=== PATIENT | male | born 1970 | race Caucasian/White ===

== ENCOUNTER 2019-07-29 01:40 | Inpatient (IN) ==
[2019-07-29] MEDS ORDERED: LACTATED RINGERS 1,000 ML IV STA (03:11)
[2019-07-29] MEDS ORDERED: DIPHTHERIA/TETANUS ADULT VACCINE 0.5 ML SYRINGE IM ONE (03:11)
[2019-07-29 04:37] LABS: Basophils # 0.1 10*3/uL (0.0-0.2); Basophils % 0.3 % (0.0-0.8); Eosinophils # 0.1 10*3/uL (0.0-0.87); Eosinophils % 0.7 % (0.00-10.9); Hemoglobin 19.6 GM/DL (14.0-18.0); Immature Granulocytes Absolute 0.18 #; Lymphocytes # 1.5 10*3/uL (1.4-4.0); Lymphocytes % 8.2 % (21.2-54.2); Mean Corpuscular HGB Conc 33.8 GM/DL (32-36); Mean Corpuscular Volume 101.8 FL (87-102); Mean Platelet Volume 10.5 FL (9.6-12.0); Monocytes % 6.4 % (1.7-12.7); Neutrophils % 83.4 % (38.7-73.9); Platelet Count 157 T/CUMM (130-400); Red Cell Distribution Width 14.1 % (9.3-17.3); White Blood Count 18.3 T/CUMM (4-12)
[2019-07-29] MEDS ORDERED: MIDAZOLAM 2 MG/2 ML VIAL ONE ×2 (04:47→16:25)
[2019-07-29] MEDS ORDERED: MORPHINE 10 MG/1 ML VIAL ONE (04:47)
[2019-07-29] MEDS ORDERED: MIDAZOLAM 2 MG/2 ML VIAL IV STA (04:50)
[2019-07-29] MEDS ORDERED: MORPHINE 4 MG/1 ML VIAL IV STA (04:50)
[2019-07-29 04:52] LABS: Partial Thromboplastin Time 24.2 SECS (20.8-36.0)
[2019-07-29 05:00] LABS: Alanine Aminotransferase 135 U/L (16-61); Alkaline Phosphatase 49 U/L (45-117); Aspartate Amino Transferase 155 U/L (0-37); Blood Urea Nitrogen 9 MG/DL (7-18); Calcium 8.9 MG/DL (8.5-10.1); Estimated Glom Filtration Rate 72 ML/MIN; Glucose 104 MG/DL (74-106); Osmolality,Calculated 264.4 MOS/KG (273-304); Total Protein 7.8 G/DL (6.4-8.3)
[2019-07-29 05:26] LABS: Apearance,Urine CLEAR (Clear); Bilirubin,Urine Negative (Negative); Blood, Urine Moderate mg/dL (Negative); Glucose,Urine (UA) Negative (Negative); Ketones,Urine Negative (Negative); Mucus,Urine Occasional /LPF (Occasional); Nitrite,Urine Negative (Negative); Protein,Urine Negative; RBC,Urine 1 /HPF (0-4); Urine Color Yellow (Yellow); Urine Specific Gravity 1.005 (1.001-1.035); Urine Urobilinogen < 2.0 EU/DL (0.2-1.0); WBC,Urine <1 /HPF (0-6)
[2019-07-29] MEDS ORDERED: PIPERACILLIN/TAZOBACTAM 3,375 MG in SODIUM CHLORIDE 0.9% 100 ML IV STA (05:31)
[2019-07-29 05:48] LABS: Barbiturates Screen,Urine Negative (Negative); Benzodiazepines Screen,Urine Negative (Negative); Cannabinoid Screen,Urine Negative (Negative); Opiate Screen,Urine Positive (Negative); Phencyclidine Screen,Urine Negative (Negative)
[2019-07-29] MEDS: DEXTROSE 5% NACL 0.45% 1,000 ML IV SCH ×2 (06:47→18:19)
[2019-07-29] MEDS: HYDROmorphone 2 MG/1 ML VIAL IV PRN ×3 (07:31→17:55)
[2019-07-29] MEDS ORDERED: ceFAZolin 2,000 MG in PREMIX 1 EACH IV ONE (07:42)
[2019-07-29] MEDS ORDERED: ONDANSETRON 4 MG/2 ML VIAL IV PRN (07:55)
[2019-07-29] MEDS ORDERED: MEPERIDINE 25 MG/1 ML VIAL IV PRN (07:55)
[2019-07-29] MEDS ORDERED: diphenhydrAMINE 50 MG/1 ML VIAL IV PRN (07:55)
[2019-07-29] MEDS ORDERED: PROMETHAZINE INJ 25 MG in SODIUM CHLORIDE 0.9% 50 ML IV PRN (07:55)
[2019-07-29] MEDS ORDERED: THIAMINE INJ 100 MG, FOLIC ACID INJ 1 MG, MAGNESIUM SULF INJ 2 GM, MULTIVITAMIN INJ 10 ... IV ONE (08:00)
[2019-07-29] MEDS: METOPROLOL TARTRATE 5 MG/5 ML VIAL IV SCH ×3 (10:18→10:36)
[2019-07-29] MEDS: PANTOPRAZOLE 40 MG VIAL IV SCH (10:20)
[2019-07-29] MEDS: dilTIAZem Drip 125 MG/125 ML PREMIX IV SCH ×2 (11:29→21:49)
[2019-07-29] MEDS: ONDANSETRON 4 MG/2 ML VIAL IV PRN (11:29)
[2019-07-29] MEDS ORDERED: METOPROLOL TARTRATE 5 MG/5 ML VIAL IV ONE (12:16)
[2019-07-29] MEDS ORDERED: MAGNESIUM HYDROXIDE SUSP 30 ML UDCUP PO PRN (13:31)
[2019-07-29] MEDS ORDERED: BACITRACIN OINT 0.9 GM PACK TOP ONE (14:41)
[2019-07-29] MEDS ORDERED: ROPIVACAINE 0.5% 30 ML VIAL ONE (15:33)
[2019-07-29] MEDS ORDERED: DEXAMETHASONE 4 MG/1 ML VIAL ONE ×2 (15:34→16:25)
[2019-07-29] MEDS ORDERED: propofoL 200 MG/20 ML VIAL IV ONE (16:24)
[2019-07-29] MEDS ORDERED: LIDOCAINE 2% 5 ML VIAL ONE (16:25)
[2019-07-29] MEDS ORDERED: PHENYLEPHRINE DRIP 20 MG/250 ML PREMIX IV ONE (16:25)
[2019-07-29] MEDS ORDERED: ONDANSETRON 4 MG/2 ML VIAL ONE (16:25)
[2019-07-29] MEDS ORDERED: fentaNYL 100 MCG/2 ML VIAL ONE (16:25)
[2019-07-29] MEDS ORDERED: SEVOFLURANE 1 UNIT/15 MINUTE INH ONE (16:25)
[2019-07-29] MEDS ORDERED: GLYCOPYRROLATE 0.4 MG/2 ML VIAL ONE (16:26)
[2019-07-29] MEDS ORDERED: ROCURONIUM 100 MG/10 ML VIAL IV ONE (16:26)
[2019-07-29] MEDS ORDERED: SUCCINYLCHOLINE 200 MG/10 ML VIAL ONE (16:26)
[2019-07-29] MEDS ORDERED: NEOSTIGMINE 10 MG/10 ML VIAL ONE (16:26)
[2019-07-29] MEDS ORDERED: PHENYLEPHRINE 1 MG/10 ML SYRINGE IV ONE (16:26)
[2019-07-29] MEDS ORDERED: LACTATED RINGERS 1,000 ML IV ONE (16:26)
[2019-07-29] MEDS: POTASSIUM CHLORIDE INJ 20 MEQ in LACTATED RINGERS 1,000 ML IV SCH ×2 (18:09→22:15)
[2019-07-29] MEDS: ceFAZolin 2,000 MG in PREMIX 1 EACH IV SCH (18:09)
[2019-07-29] MEDS: DOCUSATE SODIUM 100 MG CAPSULE PO SCH (20:30)
[2019-07-29] MEDS ORDERED: FUROSEMIDE 20 MG/2 ML VIAL IV ONE (21:37)
[2019-07-29] MEDS ORDERED: ALBUTEROL/IPRATROPIUM 3 ML NEB RESP TX ONE (21:45)
[2019-07-29] MEDS: ALBUTEROL/IPRATROPIUM 3 ML NEB RESP TX SCH (22:00)
[2019-07-29] MEDS: ZALEPLON 5 MG CAPSULE PO PRN (22:16)
[2019-07-30] MEDS: POTASSIUM CHLORIDE INJ 20 MEQ in LACTATED RINGERS 1,000 ML IV SCH ×2 (02:10→06:15)
[2019-07-30] MEDS: ceFAZolin 2,000 MG in PREMIX 1 EACH IV SCH (02:23)
[2019-07-30] MEDS: HYDROmorphone 2 MG/1 ML VIAL IV PRN ×5 (02:24→19:49)
[2019-07-30] MEDS: ALBUTEROL/IPRATROPIUM 3 ML NEB RESP TX SCH ×6 (02:41→23:30)
[2019-07-30 04:10] LABS: Basophils % 0.2 % (0.0-0.8); Hematocrit 54.2 VOL% (42.0-52.0); Hemoglobin 18.2 GM/DL (14.0-18.0); Immature Granulocytes % 0.8 %; Lymphocytes # 0.5 10*3/uL (1.4-4.0); Mean Corpuscular HGB Conc 33.6 GM/DL (32-36); Mean Corpuscular Volume 102.3 FL (87-102); Mean Platelet Volume 11.1 FL (9.6-12.0); Monocytes % 9.8 % (1.7-12.7); Neutrophils % 85.2 % (38.7-73.9); Platelet Count 145 T/CUMM (130-400); White Blood Count 13.2 T/CUMM (4-12)
[2019-07-30 04:31] LABS: Band Neutrophils 7 % (0-10); Lymphocytes 7 % (20-55); Macrocytosis Slight; Segmented Neutrophils 79 % (50-85); Total Cells Counted 100
[2019-07-30 04:32] LABS: Platelet Estimate Adequate
[2019-07-30 04:36] LABS: Calcium 7.3 MG/DL (8.5-10.1); Osmolality,Calculated 264.8 MOS/KG (273-304)
[2019-07-30] MEDS: PANTOPRAZOLE 40 MG VIAL IV SCH (08:54)
[2019-07-30] MEDS: METOPROLOL TARTRATE 25 MG TABLET PO SCH ×2 (08:56→22:06)
[2019-07-30] MEDS: DOCUSATE SODIUM 100 MG CAPSULE PO SCH ×2 (08:56→22:49)
[2019-07-30] MEDS: DILTIAZEM CD 120 MG CAPSULE PO SCH (08:57)
[2019-07-30] MEDS ORDERED: SODIUM CHLORIDE 0.9% 1,000 ML IV SCH (09:00)
[2019-07-30] MEDS ORDERED: DILTIAZEM CD 120 MG CAPSULE PO SCH (09:00)
[2019-07-30] MEDS: NICOTINE 7 MG/24 HR PATCH TRANSDERM SCH (09:02)
[2019-07-30] MEDS: FOLIC ACID 1 MG TABLET PO SCH (09:13)
[2019-07-30] MEDS: APIXABAN 2.5 MG TABLET PO SCH ×2 (09:13→22:06)
[2019-07-30 09:39] LABS: Apearance,Urine CLOUDY (Clear); Bilirubin,Urine Negative (Negative); Blood, Urine Large mg/dL (Negative); Glucose,Urine (UA) Negative (Negative); Ketones,Urine 5 mg/dL (Negative); Mucus,Urine Occasional /LPF (Occasional); Nitrite,Urine Negative (Negative); Protein,Urine 30 MG/DL; RBC,Urine 144 /HPF (0-4); Urine Color Yellow (Yellow); Urine Specific Gravity 1.017 (1.001-1.035); Urine Urobilinogen < 2.0 EU/DL (0.2-1.0); WBC,Urine 274 /HPF (0-6)
[2019-07-30] MEDS ORDERED: ALUMINUM/MAGNES/SIMETH MAX STR 30 ML UDCUP PO PRN (14:57)
[2019-07-30] MEDS ORDERED: MIDAZOLAM 2 MG/2 ML VIAL IV ONE (21:07)
[2019-07-30] MEDS ORDERED: LEVALBUTEROL 1.25 MG/3 ML NEB RESP TX ONE ×2 (21:10→21:11)
[2019-07-30] MEDS ORDERED: MIDAZOLAM 10 MG/2 ML VIAL ONE (21:13)
[2019-07-30] MEDS ORDERED: LORazepam 2 MG/1 ML VIAL IV ONE (21:15)
[2019-07-30] MEDS ORDERED: LORazepam 2 MG/1 ML VIAL ONE (21:17)
[2019-07-30 21:42] LABS: Calcium 7.9 MG/DL (8.5-10.1); Osmolality,Calculated 261.4 MOS/KG (273-304)
[2019-07-30 21:45] LABS: ABG Base Excess -4.7 MMOL/L (-2.5-2.5); ABG HCO3 20.6 MMOL/L (20-26); ABG Oxygen Saturation 96.7 % (95-100); ABG PCO2 32.3 MM HG (35-48); ABG PH 7.381 (7.35-7.45); ABG PO2 89.5 MM HG (80-95); ABG TCO2 15.8 MMOL/L (23-27); Allen Test Positive; Pt O2 Delivery Device Venturi Mask
[2019-07-30] MEDS: ZALEPLON 5 MG CAPSULE PO PRN (22:08)
[2019-07-31] MEDS: HYDROmorphone 2 MG/1 ML VIAL IV PRN ×3 (00:04→08:37)
[2019-07-31] MEDS: LORazepam 1 MG TABLET PO PRN ×2 (01:12→09:09)
[2019-07-31] MEDS: ALBUTEROL/IPRATROPIUM 3 ML NEB RESP TX SCH ×5 (03:15→19:58)
[2019-07-31 06:31] LABS: Basophils % 0.1 % (0.0-0.8); Hematocrit 51.7 VOL% (42.0-52.0); Immature Granulocytes % 1.2 %; Immature Granulocytes Absolute 0.26 #; Lymphocytes # 0.9 10*3/uL (1.4-4.0); Lymphocytes % 4.2 % (21.2-54.2); Mean Corpuscular HGB Conc 32.9 GM/DL (32-36); Mean Platelet Volume 11.4 FL (9.6-12.0); Neutrophils % 86.5 % (38.7-73.9); Platelet Count 136 T/CUMM (130-400); Red Blood Count 5.02 MC/CUMM (3.8-5.5); Red Cell Distribution Width 13.8 % (9.3-17.3)
[2019-07-31 06:40] LABS: Calcium 8.1 MG/DL (8.5-10.1); Osmolality,Calculated 249.9 MOS/KG (273-304)
[2019-07-31 06:50] LABS: Band Neutrophils 1 % (0-10); Lymphocytes 3 % (20-55); Segmented Neutrophils 91 % (50-85); Total Cells Counted 100
[2019-07-31 08:32] LABS: Hepatitis B Core IgM Quant 0.13 Index; Hepatitis B Surface Ag Quant < 0.10 Index; Hepatitis B Surface Ag Result Negative (Negative); Hepatitis C Virus Ab Quant < 0.02 Index; Hepatitis C Virus Ab Result Negative (Negative)
[2019-07-31] MEDS: DOCUSATE SODIUM 100 MG CAPSULE PO SCH (08:34)
[2019-07-31] MEDS: DILTIAZEM CD 120 MG CAPSULE PO SCH (08:34)
[2019-07-31] MEDS: METOPROLOL TARTRATE 25 MG TABLET PO SCH ×2 (08:34→21:59)
[2019-07-31] MEDS: APIXABAN 2.5 MG TABLET PO SCH ×2 (08:34→21:59)
[2019-07-31] MEDS: FOLIC ACID 1 MG TABLET PO SCH (08:34)
[2019-07-31] MEDS: NICOTINE 7 MG/24 HR PATCH TRANSDERM SCH (08:44)
[2019-07-31] MEDS ORDERED: PANTOPRAZOLE 40 MG TABLET PO SCH (09:00)
[2019-07-31] MEDS ORDERED: SODIUM CHLORIDE 0.9% 1,000 ML IV SCH (09:30)
[2019-07-31] MEDS ORDERED: CIPROFLOXACIN 500 MG TABLET PO SCH (09:37)
[2019-07-31] MEDS: TAMSULOSIN 0.4 MG CAPSULE PO SCH ×2 (09:51→21:59)
[2019-07-31] MEDS ORDERED: ALBUTEROL/IPRATROPIUM 3 ML NEB RESP TX PRN (09:55)
[2019-07-31] MEDS ORDERED: methylPREDNISolone SOD SUC 125 MG/2 ML VIAL IV ONE (10:30)
[2019-07-31] MEDS ORDERED: FUROSEMIDE 40 MG/4 ML VIAL IV ONE ×2 (10:30→15:00)
[2019-07-31] MEDS ORDERED: ZIPRASIDONE 20 MG/1 ML VIAL IM PRN (13:09)
[2019-07-31] MEDS ORDERED: LORazepam 2 MG/1 ML VIAL IV PRN ×3 (13:09→13:54)
[2019-07-31] MEDS ORDERED: ETOMIDATE 40 MG/20 ML VIAL IV ONE (13:52)
[2019-07-31] MEDS ORDERED: SUCCINYLCHOLINE 200 MG/10 ML VIAL ONE (13:52)
[2019-07-31] MEDS ORDERED: propofoL 200 MG/20 ML VIAL IV ONE (13:52)
[2019-07-31 14:15] LABS: Basophils % 0.2 % (0.0-0.8); Hematocrit 48.9 VOL% (42.0-52.0); Hemoglobin 16.4 GM/DL (14.0-18.0); Immature Granulocytes % 1.6 %; Immature Granulocytes Absolute 0.33 #; Lymphocytes # 0.6 10*3/uL (1.4-4.0); Mean Corpuscular HGB Conc 33.5 GM/DL (32-36); Mean Corpuscular Volume 101.7 FL (87-102); Mean Platelet Volume 10.8 FL (9.6-12.0); Monocytes % 5.9 % (1.7-12.7); Neutrophils % 89.3 % (38.7-73.9); Platelet Count 144 T/CUMM (130-400); Red Blood Count 4.81 MC/CUMM (3.8-5.5); Red Cell Distribution Width 13.6 % (9.3-17.3); White Blood Count 20.8 T/CUMM (4-12)
[2019-07-31 14:37] LABS: ABG Base Excess -3.7 MMOL/L (-2.5-2.5); ABG HCO3 21.2 MMOL/L (20-26); ABG Oxygen Saturation 88.4 % (95-100); ABG PCO2 51.4 MM HG (35-48); ABG PO2 63.5 MM HG (80-95); ABG TCO2 20.7 MMOL/L (23-27); Allen Test Positive; Pt O2 Delivery Device Ventilator
[2019-07-31] MEDS ORDERED: MAGNESIUM SULF RIDER 4 GM in PREMIX 1 EACH IV PRN (14:40)
[2019-07-31] MEDS ORDERED: MAGNESIUM SULF RIDER 2 GM in PREMIX 1 EACH IV PRN (14:40)
[2019-07-31 14:42] LABS: Band Neutrophils 6 % (0-10); Lymphocytes 4 % (20-55); Metamyelocytes 1 %; Segmented Neutrophils 88 % (50-85); Total Cells Counted 100
[2019-07-31 14:43] LABS: Anisocytosis Slight; Macrocytosis Slight; Platelet Estimate Adequate; Polychromasia Slight
[2019-07-31 14:48] LABS: Albumin 3.4 G/DL (3.4-5.0); Bilirubin,Total 1.9 MG/DL (0.2-1.0); Calcium 7.4 MG/DL (8.5-10.1); Osmolality,Calculated 251.2 MOS/KG (273-304)
[2019-07-31 14:51] LABS: INR 1.1; PT Patient Result 12.2 SECS (9.6-12.2)
[2019-07-31] MEDS: fentaNYL INJ 1,250 MCG in SODIUM CHLORIDE 0.9% 225 ML IV PRN (14:55)
[2019-07-31] MEDS ORDERED: THIAMINE 100 MG TABLET PER TUBE SCH (15:00)
[2019-07-31] MEDS ORDERED: SODIUM POLYSTYRENE SULFATE 15 GM/60 ML BOTTLE PO ONE (17:52)
[2019-07-31] MEDS: LORazepam 2 MG/1 ML VIAL IV PRN ×2 (17:52→17:58)
[2019-07-31] MEDS ORDERED: GLUCAGON 1 MG VIAL IM PRN (17:52)
[2019-07-31] MEDS ORDERED: DEXTROSE 10% 250 ML BAG IV PRN (17:52)
[2019-07-31] MEDS ORDERED: MAGNESIUM SULF RIDER 2 GM in PREMIX 1 EACH IV ONE (17:58)
[2019-07-31] MEDS: CISATRACURIUM 200 MG in SODIUM CHLORIDE 0.9% 180 ML IV SCH (18:02)
[2019-07-31] MEDS: PIPERACILLIN/TAZOBACTAM 3,375 MG in SODIUM CHLORIDE 0.9% 100 ML IV SCH (18:10)
[2019-07-31] MEDS: methylPREDNISolone SOD SUC 40 MG/1 ML VIAL IV SCH (18:10)
[2019-07-31] MEDS: OXAZEPAM 10 MG CAPSULE PO SCH ×2 (18:19→22:35)
[2019-07-31] MEDS: INSULIN REGULAR 100 UNIT/ML SUBCUT SCH (18:23)
[2019-07-31] MEDS: FUROSEMIDE INJ 100 MG in SODIUM CHLORIDE 0.9% 90 ML IV SCH (18:34)
[2019-07-31 19:49] LABS: Hepatitis B Core IgM Quant 0.13 Index; Hepatitis B Surface Ag Quant < 0.10 Index; Hepatitis B Surface Ag Result Negative (Negative); Hepatitis C Virus Ab Quant < 0.02 Index; Hepatitis C Virus Ab Result Negative (Negative)
[2019-07-31 20:35] LABS: ABG Base Excess -3.7 MMOL/L (-2.5-2.5); ABG HCO3 21.4 MMOL/L (20-26); ABG Oxygen Saturation 98.4 % (95-100); ABG PCO2 59.2 MM HG (35-48); ABG PH 7.242 (7.35-7.45); Allen Test Positive; Pt O2 Delivery Device Ventilator
[2019-07-31] MEDS ORDERED: LORATADINE 10 MG TABLET PO SCH (21:00)
[2019-07-31] MEDS: DOCUSATE SODIUM 100 MG/10 ML UDCUP PER TUBE SCH (22:00)
[2019-07-31] MEDS: OXYMETAZOLINE 0.05% NASAL SPRAY 15 ML BOTTLE BOTH NARES SCH (22:00)
[2019-07-31] MEDS: MOMETASONE/FORMOTEROL 200-5 INHALER 8.8 GM INH SCH (22:00)
[2019-08-01] MEDS: ALBUTEROL/IPRATROPIUM 3 ML NEB RESP TX SCH ×7 (00:05→23:56)
[2019-08-01] MEDS: fentaNYL INJ 1,250 MCG in SODIUM CHLORIDE 0.9% 225 ML IV PRN ×3 (00:30→18:16)
[2019-08-01] MEDS: INSULIN REGULAR 100 UNIT/ML SUBCUT SCH ×5 (01:42→23:45)
[2019-08-01] MEDS: PIPERACILLIN/TAZOBACTAM 3,375 MG in SODIUM CHLORIDE 0.9% 100 ML IV SCH ×3 (02:05→18:14)
[2019-08-01] MEDS: methylPREDNISolone SOD SUC 40 MG/1 ML VIAL IV SCH ×3 (02:05→18:14)
[2019-08-01] MEDS: CISATRACURIUM 200 MG in SODIUM CHLORIDE 0.9% 180 ML IV SCH ×4 (03:30→21:58)
[2019-08-01] MEDS: FUROSEMIDE INJ 100 MG in SODIUM CHLORIDE 0.9% 90 ML IV SCH ×2 (03:30→14:06)
[2019-08-01 04:17] LABS: Basophils % 0.2 % (0.0-0.8); Hematocrit 43.4 VOL% (42.0-52.0); Hemoglobin 14.3 GM/DL (14.0-18.0); Immature Granulocytes % 1.3 %; Immature Granulocytes Absolute 0.16 #; Lymphocytes # 0.5 10*3/uL (1.4-4.0); Lymphocytes % 4.3 % (21.2-54.2); Mean Corpuscular HGB Conc 32.9 GM/DL (32-36); Mean Corpuscular Volume 101.9 FL (87-102); Mean Platelet Volume 11.1 FL (9.6-12.0); Monocytes % 6.5 % (1.7-12.7); Neutrophils % 87.7 % (38.7-73.9); Platelet Count 113 T/CUMM (130-400); Red Blood Count 4.26 MC/CUMM (3.8-5.5); Red Cell Distribution Width 13.2 % (9.3-17.3); White Blood Count 12.3 T/CUMM (4-12)
[2019-08-01 04:23] LABS: PT Patient Result 11.1 SECS (9.6-12.2)
[2019-08-01 04:28] LABS: Calcium 7.6 MG/DL (8.5-10.1); Osmolality,Calculated 259.8 MOS/KG (273-304)
[2019-08-01 04:32] LABS: Albumin 3.1 G/DL (3.4-5.0); Bilirubin,Direct 0.74 MG/DL (0.0-0.20); Bilirubin,Indirect 1.1 MG/DL (0.0-1.0); Bilirubin,Total 1.8 MG/DL (0.2-1.0); Total Protein 5.7 G/DL (6.4-8.3)
[2019-08-01 04:41] LABS: Band Neutrophils 2 % (0-10); Hypochromasia Slight; Lymphocytes 7 % (20-55); Platelet Estimate Decreased; Segmented Neutrophils 83 % (50-85); Total Cells Counted 100
[2019-08-01 04:42] LABS: Macrocytosis Slight
[2019-08-01 04:43] LABS: Allen Test Positive; Pt O2 Delivery Device Ventilator
[2019-08-01 04:45] LABS: ABG Base Excess -1.4 MMOL/L (-2.5-2.5); ABG HCO3 24.9 MMOL/L (20-26); ABG Oxygen Saturation 98.6 % (95-100); ABG PCO2 47.5 MM HG (35-48); ABG PH 7.337 (7.35-7.45); ABG PO2 138.1 MM HG (80-95); ABG TCO2 26.3 MMOL/L (23-27)
[2019-08-01] MEDS: MOMETASONE/FORMOTEROL 200-5 INHALER 8.8 GM INH SCH ×2 (08:17→21:58)
[2019-08-01] MEDS: MULTIVITAMIN (CENTRUM) TABLET PO SCH (08:52)
[2019-08-01] MEDS: DILTIAZEM 60 MG TABLET PO SCH ×4 (08:53→21:28)
[2019-08-01] MEDS: TAMSULOSIN 0.4 MG CAPSULE PO SCH ×2 (08:53→21:29)
[2019-08-01] MEDS: buPROPion 75 MG TABLET PER TUBE SCH ×2 (08:53→21:27)
[2019-08-01] MEDS: METOPROLOL TARTRATE 25 MG TABLET PO SCH ×2 (08:53→21:27)
[2019-08-01] MEDS: MONTELUKAST 10 MG TABLET PO SCH (08:54)
[2019-08-01] MEDS: ATORVASTATIN 20 MG TABLET PO SCH (08:54)
[2019-08-01] MEDS: APIXABAN 2.5 MG TABLET PO SCH ×2 (08:54→21:30)
[2019-08-01] MEDS: DOCUSATE SODIUM 100 MG/10 ML UDCUP PER TUBE SCH ×2 (08:54→21:27)
[2019-08-01] MEDS: PANTOPRAZOLE 40 MG VIAL IV SCH (08:59)
[2019-08-01] MEDS ORDERED: COLCHICINE 0.6 MG CAPSULE PO SCH (09:00)
[2019-08-01] MEDS ORDERED: LURASIDONE 60 MG TABLET PO SCH (09:00)
[2019-08-01] MEDS ORDERED: hydrOXYzine HCL 25 MG TABLET PO SCH (09:00)
[2019-08-01] MEDS: THIAMINE 200 MG/2 ML VIAL IV SCH (09:02)
[2019-08-01] MEDS: OXAZEPAM 10 MG CAPSULE PO SCH ×4 (09:13→21:44)
[2019-08-01] MEDS: FOLIC ACID INJ 1 MG in SYRINGE 1 EACH IV SCH (09:24)
[2019-08-01] MEDS: NICOTINE 7 MG/24 HR PATCH TRANSDERM SCH (10:16)
[2019-08-01] MEDS: FLUoxetine 20 MG CAPSULE PO SCH (12:26)
[2019-08-01] MEDS: LACTULOSE 20 GM/30 ML UDCUP PO SCH ×3 (12:34→21:27)
[2019-08-01] MEDS: OXYMETAZOLINE 0.05% NASAL SPRAY 15 ML BOTTLE BOTH NARES SCH (21:58)
[2019-08-02] MEDS: FUROSEMIDE INJ 100 MG in SODIUM CHLORIDE 0.9% 90 ML IV SCH (00:18)
[2019-08-02] MEDS: PIPERACILLIN/TAZOBACTAM 3,375 MG in SODIUM CHLORIDE 0.9% 100 ML IV SCH ×3 (01:49→18:21)
[2019-08-02] MEDS: methylPREDNISolone SOD SUC 40 MG/1 ML VIAL IV SCH ×3 (01:50→18:20)
[2019-08-02] MEDS: fentaNYL INJ 1,250 MCG in SODIUM CHLORIDE 0.9% 225 ML IV PRN ×3 (03:27→16:56)
[2019-08-02] MEDS: ALBUTEROL/IPRATROPIUM 3 ML NEB RESP TX SCH ×6 (03:34→23:40)
[2019-08-02 03:42] LABS: Allen Test Positive; Pt O2 Delivery Device Ventilator
[2019-08-02 03:43] LABS: ABG Base Excess 6.4 MMOL/L (-2.5-2.5); ABG HCO3 31.7 MMOL/L (20-26); ABG Oxygen Saturation 95.3 % (95-100); ABG PCO2 47.4 MM HG (35-48); ABG PH 7.443 (7.35-7.45); ABG PO2 76.2 MM HG (80-95); ABG TCO2 33.1 MMOL/L (23-27)
[2019-08-02 05:05] LABS: Basophils % 0.1 % (0.0-0.8); Hematocrit 42.8 VOL% (42.0-52.0); Hemoglobin 14.2 GM/DL (14.0-18.0); Immature Granulocytes Absolute 0.14 #; Lymphocytes # 0.3 10*3/uL (1.4-4.0); Mean Corpuscular HGB Conc 33.2 GM/DL (32-36); Mean Corpuscular Volume 102.1 FL (87-102); Mean Platelet Volume 10.5 FL (9.6-12.0); Monocytes % 7.1 % (1.7-12.7); Neutrophils % 89.8 % (38.7-73.9); Platelet Count 150 T/CUMM (130-400); Red Blood Count 4.19 MC/CUMM (3.8-5.5); Red Cell Distribution Width 13.4 % (9.3-17.3); White Blood Count 13.8 T/CUMM (4-12)
[2019-08-02 05:31] LABS: Band Neutrophils 2 % (0-10); Hypochromasia 1+; Lymphocytes 5 % (20-55); Macrocytosis Slight; Segmented Neutrophils 86 % (50-85); Total Cells Counted 100
[2019-08-02 05:39] LABS: Albumin 2.7 G/DL (3.4-5.0); Bilirubin,Direct 0.48 MG/DL (0.0-0.20); Bilirubin,Indirect 0.4 MG/DL (0.0-1.0); Bilirubin,Total 0.9 MG/DL (0.2-1.0); Total Protein 5.6 G/DL (6.4-8.3)
[2019-08-02 05:41] LABS: Prealbumin 20.2 MG/DL (20-40)
[2019-08-02 05:56] LABS: Calcium 8.1 MG/DL (8.5-10.1); Osmolality,Calculated 280.1 MOS/KG (273-304)
[2019-08-02] MEDS: INSULIN REGULAR 100 UNIT/ML SUBCUT SCH ×3 (06:18→18:21)
[2019-08-02] MEDS: PANTOPRAZOLE 40 MG VIAL IV SCH (09:15)
[2019-08-02] MEDS: SOTALOL 80 MG TABLET PO SCH ×2 (09:37→21:04)
[2019-08-02] MEDS: MONTELUKAST 10 MG TABLET PO SCH (09:37)
[2019-08-02] MEDS: APIXABAN 2.5 MG TABLET PO SCH ×2 (09:37→21:05)
[2019-08-02] MEDS: DOCUSATE SODIUM 100 MG/10 ML UDCUP PER TUBE SCH ×2 (09:37→21:04)
[2019-08-02] MEDS: ATORVASTATIN 20 MG TABLET PO SCH (09:37)
[2019-08-02] MEDS: TAMSULOSIN 0.4 MG CAPSULE PO SCH ×2 (09:37→21:05)
[2019-08-02] MEDS: MULTIVITAMIN (CENTRUM) TABLET PO SCH (09:37)
[2019-08-02] MEDS: DILTIAZEM 60 MG TABLET PO SCH ×4 (09:37→21:05)
[2019-08-02] MEDS: buPROPion 75 MG TABLET PER TUBE SCH ×2 (09:37→21:05)
[2019-08-02] MEDS: MOMETASONE/FORMOTEROL 200-5 INHALER 8.8 GM INH SCH ×2 (09:38→21:26)
[2019-08-02] MEDS: FUROSEMIDE 40 MG/4 ML VIAL IV SCH ×2 (09:38→15:44)
[2019-08-02] MEDS: LACTULOSE 20 GM/30 ML UDCUP PO SCH ×3 (09:39→21:04)
[2019-08-02] MEDS: THIAMINE 200 MG/2 ML VIAL IV SCH (09:42)
[2019-08-02] MEDS: OXAZEPAM 10 MG CAPSULE PO SCH ×4 (09:54→21:05)
[2019-08-02] MEDS: NICOTINE 7 MG/24 HR PATCH TRANSDERM SCH (09:54)
[2019-08-02] MEDS: FOLIC ACID INJ 1 MG in SYRINGE 1 EACH IV SCH (09:54)
[2019-08-02] MEDS: FLUoxetine 20 MG CAPSULE PO SCH (13:28)
[2019-08-02] MEDS: CISATRACURIUM 200 MG in SODIUM CHLORIDE 0.9% 180 ML IV SCH (17:32)
[2019-08-02] MEDS: OXYMETAZOLINE 0.05% NASAL SPRAY 15 ML BOTTLE BOTH NARES SCH (21:26)
[2019-08-03] MEDS: INSULIN REGULAR 100 UNIT/ML SUBCUT SCH ×4 (00:19→17:27)
[2019-08-03] MEDS: PIPERACILLIN/TAZOBACTAM 3,375 MG in SODIUM CHLORIDE 0.9% 100 ML IV SCH ×3 (01:39→17:31)
[2019-08-03] MEDS: methylPREDNISolone SOD SUC 40 MG/1 ML VIAL IV SCH ×3 (01:40→21:38)
[2019-08-03] MEDS: ALBUTEROL/IPRATROPIUM 3 ML NEB RESP TX SCH ×6 (02:58→23:45)
[2019-08-03 03:39] LABS: ABG Base Excess 8.1 MMOL/L (-2.5-2.5); ABG HCO3 31.8 MMOL/L (20-26); ABG Oxygen Saturation 95.8 % (95-100); ABG PCO2 48.6 MM HG (35-48); ABG TCO2 28.4 MMOL/L (23-27)
[2019-08-03] MEDS: fentaNYL INJ 1,250 MCG in SODIUM CHLORIDE 0.9% 225 ML IV PRN ×4 (03:52→21:36)
[2019-08-03 06:19] LABS: Basophils % 0.2 % (0.0-0.8); Hematocrit 45.7 VOL% (42.0-52.0); Hemoglobin 14.9 GM/DL (14.0-18.0); Immature Granulocytes % 1.3 %; Lymphocytes # 0.5 10*3/uL (1.4-4.0); Mean Corpuscular HGB Conc 32.6 GM/DL (32-36); Mean Corpuscular Volume 104.8 FL (87-102); Mean Platelet Volume 10.1 FL (9.6-12.0); Monocytes % 6.5 % (1.7-12.7); NRBC # 0.04 10*3/uL; Platelet Count 180 T/CUMM (130-400); Red Blood Count 4.36 MC/CUMM (3.8-5.5)
[2019-08-03 06:41] LABS: Calcium 9.1 MG/DL (8.5-10.1); Osmolality,Calculated 290.8 MOS/KG (273-304)
[2019-08-03 06:43] LABS: Albumin 2.6 G/DL (3.4-5.0); Bilirubin,Direct 0.4 MG/DL (0.0-0.20); Bilirubin,Indirect 0.6 MG/DL (0.0-1.0); Total Protein 6.4 G/DL (6.4-8.3)
[2019-08-03] MEDS: DOCUSATE SODIUM 100 MG/10 ML UDCUP PER TUBE SCH ×2 (08:41→21:38)
[2019-08-03] MEDS: THIAMINE 200 MG/2 ML VIAL IV SCH (08:41)
[2019-08-03] MEDS: FUROSEMIDE 40 MG/4 ML VIAL IV SCH ×2 (08:41→15:26)
[2019-08-03] MEDS: LACTULOSE 20 GM/30 ML UDCUP PO SCH ×3 (08:41→21:36)
[2019-08-03] MEDS: PANTOPRAZOLE 40 MG VIAL IV SCH (08:41)
[2019-08-03] MEDS: SOTALOL 80 MG TABLET PO SCH ×2 (08:42→21:39)
[2019-08-03] MEDS: ATORVASTATIN 20 MG TABLET PO SCH (08:42)
[2019-08-03] MEDS: DILTIAZEM 60 MG TABLET PO SCH ×4 (08:42→21:40)
[2019-08-03] MEDS: APIXABAN 2.5 MG TABLET PO SCH ×2 (08:42→21:40)
[2019-08-03] MEDS: MULTIVITAMIN (CENTRUM) TABLET PO SCH (08:42)
[2019-08-03] MEDS: buPROPion 75 MG TABLET PER TUBE SCH ×2 (08:42→21:36)
[2019-08-03] MEDS: MONTELUKAST 10 MG TABLET PO SCH (08:42)
[2019-08-03] MEDS: TAMSULOSIN 0.4 MG CAPSULE PO SCH ×2 (08:42→21:40)
[2019-08-03] MEDS: MOMETASONE/FORMOTEROL 200-5 INHALER 8.8 GM INH SCH ×2 (08:44→22:06)
[2019-08-03] MEDS: FOLIC ACID INJ 1 MG in SYRINGE 1 EACH IV SCH (08:44)
[2019-08-03 08:55] LABS: Band Neutrophils 2 % (0-10); Lymphocytes 7 % (20-55); Segmented Neutrophils 86 % (50-85); Total Cells Counted 100
[2019-08-03 08:56] LABS: Hypochromasia 1+; Macrocytosis Slight
[2019-08-03 08:57] LABS: Platelet Estimate Adequate; Polychromasia Slight
[2019-08-03] MEDS: OXAZEPAM 10 MG CAPSULE PO SCH ×4 (08:59→21:39)
[2019-08-03] MEDS: NICOTINE 7 MG/24 HR PATCH TRANSDERM SCH (09:50)
[2019-08-03] MEDS: FLUoxetine 20 MG CAPSULE PO SCH (12:08)
[2019-08-03] MEDS: CISATRACURIUM 200 MG in SODIUM CHLORIDE 0.9% 180 ML IV SCH (17:09)
[2019-08-03] MEDS: OXYMETAZOLINE 0.05% NASAL SPRAY 15 ML BOTTLE BOTH NARES SCH (22:06)
[2019-08-04] MEDS: INSULIN REGULAR 100 UNIT/ML SUBCUT SCH ×4 (00:54→17:03)
[2019-08-04] MEDS: PIPERACILLIN/TAZOBACTAM 3,375 MG in SODIUM CHLORIDE 0.9% 100 ML IV SCH ×3 (02:38→17:05)
[2019-08-04] MEDS: ALBUTEROL/IPRATROPIUM 3 ML NEB RESP TX SCH ×5 (03:35→20:27)
[2019-08-04 04:21] LABS: ABG Base Excess 8.3 MMOL/L (-2.5-2.5); ABG Oxygen Saturation 96.7 % (95-100); ABG PCO2 44.5 MM HG (35-48); ABG PH 7.479 (7.35-7.45); ABG PO2 87.6 MM HG (80-95); ABG TCO2 27.7 MMOL/L (23-27); Allen Test Positive; Pt O2 Delivery Device Ventilator
[2019-08-04] MEDS: fentaNYL INJ 1,250 MCG in SODIUM CHLORIDE 0.9% 225 ML IV PRN ×2 (05:57→17:06)
[2019-08-04] MEDS: THIAMINE 200 MG/2 ML VIAL IV SCH (08:00)
[2019-08-04] MEDS: methylPREDNISolone SOD SUC 40 MG/1 ML VIAL IV SCH ×2 (08:00→21:42)
[2019-08-04] MEDS: FUROSEMIDE 40 MG/4 ML VIAL IV SCH ×2 (08:00→15:32)
[2019-08-04] MEDS: FOLIC ACID INJ 1 MG in SYRINGE 1 EACH IV SCH (08:01)
[2019-08-04] MEDS: PANTOPRAZOLE 40 MG VIAL IV SCH (08:01)
[2019-08-04] MEDS: ATORVASTATIN 20 MG TABLET PO SCH (08:02)
[2019-08-04] MEDS: NICOTINE 7 MG/24 HR PATCH TRANSDERM SCH (08:02)
[2019-08-04] MEDS: SOTALOL 80 MG TABLET PO SCH ×2 (08:02→21:41)
[2019-08-04] MEDS: MONTELUKAST 10 MG TABLET PO SCH (08:02)
[2019-08-04] MEDS: MULTIVITAMIN (CENTRUM) TABLET PO SCH (08:02)
[2019-08-04] MEDS: OXAZEPAM 10 MG CAPSULE PO SCH ×4 (08:02→21:51)
[2019-08-04] MEDS: buPROPion 75 MG TABLET PER TUBE SCH ×2 (08:02→21:42)
[2019-08-04] MEDS: APIXABAN 2.5 MG TABLET PO SCH ×2 (08:03→21:40)
[2019-08-04] MEDS: DOCUSATE SODIUM 100 MG/10 ML UDCUP PER TUBE SCH ×2 (08:03→21:40)
[2019-08-04] MEDS: TAMSULOSIN 0.4 MG CAPSULE PO SCH ×2 (08:03→21:41)
[2019-08-04] MEDS: LACTULOSE 20 GM/30 ML UDCUP PO SCH ×3 (08:03→21:40)
[2019-08-04] MEDS: DILTIAZEM 60 MG TABLET PO SCH ×4 (08:03→21:42)
[2019-08-04] MEDS: MOMETASONE/FORMOTEROL 200-5 INHALER 8.8 GM INH SCH ×2 (08:11→21:49)
[2019-08-04] MEDS: FLUoxetine 20 MG CAPSULE PO SCH (12:11)
[2019-08-04] MEDS: CISATRACURIUM 200 MG in SODIUM CHLORIDE 0.9% 180 ML IV SCH (17:03)
[2019-08-04] MEDS: OXYMETAZOLINE 0.05% NASAL SPRAY 15 ML BOTTLE BOTH NARES SCH (21:49)
[2019-08-05] MEDS: ALBUTEROL/IPRATROPIUM 3 ML NEB RESP TX SCH ×6 (00:04→20:18)
[2019-08-05] MEDS: INSULIN REGULAR 100 UNIT/ML SUBCUT SCH ×4 (00:52→17:31)
[2019-08-05] MEDS: PIPERACILLIN/TAZOBACTAM 3,375 MG in SODIUM CHLORIDE 0.9% 100 ML IV SCH ×3 (03:00→17:04)
[2019-08-05 05:41] LABS: ABG Base Excess 8.8 MMOL/L (-2.5-2.5); ABG HCO3 33.5 MMOL/L (20-26); ABG PCO2 44.8 MM HG (35-48); ABG PH 7.491 (7.35-7.45); ABG PO2 92.2 MM HG (80-95); ABG TCO2 34.8 MMOL/L (23-27)
[2019-08-05] MEDS: buPROPion 75 MG TABLET PER TUBE SCH ×3 (08:30→21:37)
[2019-08-05] MEDS: PANTOPRAZOLE 40 MG VIAL IV SCH (09:02)
[2019-08-05] MEDS: FOLIC ACID INJ 1 MG in SYRINGE 1 EACH IV SCH (09:03)
[2019-08-05] MEDS: methylPREDNISolone SOD SUC 40 MG/1 ML VIAL IV SCH ×2 (09:04→21:33)
[2019-08-05] MEDS: THIAMINE 200 MG/2 ML VIAL IV SCH (09:04)
[2019-08-05] MEDS: DOCUSATE SODIUM 100 MG/10 ML UDCUP PER TUBE SCH ×2 (09:05→21:34)
[2019-08-05] MEDS: FUROSEMIDE 40 MG/4 ML VIAL IV SCH ×2 (09:05→15:11)
[2019-08-05] MEDS: MULTIVITAMIN (CENTRUM) TABLET PO SCH (09:05)
[2019-08-05] MEDS: TAMSULOSIN 0.4 MG CAPSULE PO SCH ×2 (09:05→21:34)
[2019-08-05] MEDS: ATORVASTATIN 20 MG TABLET PO SCH (09:05)
[2019-08-05] MEDS: SOTALOL 80 MG TABLET PO SCH ×2 (09:05→21:34)
[2019-08-05] MEDS: DILTIAZEM 60 MG TABLET PO SCH ×4 (09:05→21:33)
[2019-08-05] MEDS: LACTULOSE 20 GM/30 ML UDCUP PO SCH ×3 (09:05→21:33)
[2019-08-05] MEDS: APIXABAN 2.5 MG TABLET PO SCH ×2 (09:06→21:33)
[2019-08-05] MEDS: OXAZEPAM 10 MG CAPSULE PO SCH ×4 (09:06→21:37)
[2019-08-05] MEDS: MONTELUKAST 10 MG TABLET PO SCH (09:06)
[2019-08-05] MEDS: MOMETASONE/FORMOTEROL 200-5 INHALER 8.8 GM INH SCH ×2 (09:06→22:14)
[2019-08-05] MEDS: NICOTINE 7 MG/24 HR PATCH TRANSDERM SCH (09:09)
[2019-08-05] MEDS: FLUoxetine 20 MG CAPSULE PO SCH (12:43)
[2019-08-05] MEDS: CISATRACURIUM 200 MG in SODIUM CHLORIDE 0.9% 180 ML IV SCH (16:27)
[2019-08-05] MEDS: OXYMETAZOLINE 0.05% NASAL SPRAY 15 ML BOTTLE BOTH NARES SCH (22:13)
[2019-08-06] MEDS: ALBUTEROL/IPRATROPIUM 3 ML NEB RESP TX SCH ×7 (00:33→23:45)
[2019-08-06] MEDS: INSULIN REGULAR 100 UNIT/ML SUBCUT SCH ×4 (02:45→17:10)
[2019-08-06] MEDS: PIPERACILLIN/TAZOBACTAM 3,375 MG in SODIUM CHLORIDE 0.9% 100 ML IV SCH ×3 (02:46→17:02)
[2019-08-06 05:03] LABS: ABG Base Excess 10.3 MMOL/L (-2.5-2.5); ABG Oxygen Saturation 94.3 % (95-100); ABG PCO2 43.8 MM HG (35-48); ABG PO2 69.3 MM HG (80-95); ABG TCO2 28.6 MMOL/L (23-27); Allen Test Positive; Pt O2 Delivery Device Ventilator
[2019-08-06 05:23] LABS: Calcium 8.9 MG/DL (8.5-10.1); Osmolality,Calculated 306.1 MOS/KG (273-304); Prealbumin 52.7 MG/DL (20-40)
[2019-08-06] MEDS: fentaNYL INJ 1,250 MCG in SODIUM CHLORIDE 0.9% 225 ML IV PRN (05:48)
[2019-08-06] MEDS: MOMETASONE/FORMOTEROL 200-5 INHALER 8.8 GM INH SCH ×2 (08:09→22:42)
[2019-08-06] MEDS: buPROPion 75 MG TABLET PER TUBE SCH ×2 (08:50→22:38)
[2019-08-06] MEDS: ATORVASTATIN 20 MG TABLET PO SCH (08:50)
[2019-08-06] MEDS: OXAZEPAM 10 MG CAPSULE PO SCH ×3 (08:50→16:58)
[2019-08-06] MEDS: APIXABAN 2.5 MG TABLET PO SCH ×2 (08:50→22:38)
[2019-08-06] MEDS: TAMSULOSIN 0.4 MG CAPSULE PO SCH ×2 (08:50→22:38)
[2019-08-06] MEDS: DILTIAZEM 60 MG TABLET PO SCH ×4 (08:50→22:38)
[2019-08-06] MEDS: FUROSEMIDE 40 MG/4 ML VIAL IV SCH ×2 (08:51→17:02)
[2019-08-06] MEDS: SOTALOL 80 MG TABLET PO SCH ×2 (08:51→22:37)
[2019-08-06] MEDS: MONTELUKAST 10 MG TABLET PO SCH (08:51)
[2019-08-06] MEDS: LACTULOSE 20 GM/30 ML UDCUP PO SCH ×3 (08:51→22:39)
[2019-08-06] MEDS: DOCUSATE SODIUM 100 MG/10 ML UDCUP PER TUBE SCH ×2 (08:51→22:39)
[2019-08-06] MEDS: MULTIVITAMIN (CENTRUM) TABLET PO SCH (08:51)
[2019-08-06] MEDS: methylPREDNISolone SOD SUC 40 MG/1 ML VIAL IV SCH ×2 (08:54→22:37)
[2019-08-06] MEDS: PANTOPRAZOLE 40 MG VIAL IV SCH (08:57)
[2019-08-06] MEDS: THIAMINE 200 MG/2 ML VIAL IV SCH (09:00)
[2019-08-06] MEDS: FOLIC ACID INJ 1 MG in SYRINGE 1 EACH IV SCH (09:04)
[2019-08-06] MEDS: NICOTINE 7 MG/24 HR PATCH TRANSDERM SCH (09:58)
[2019-08-06] MEDS: FLUoxetine 20 MG CAPSULE PO SCH (13:56)
[2019-08-06] MEDS: CISATRACURIUM 200 MG in SODIUM CHLORIDE 0.9% 180 ML IV SCH (16:38)
[2019-08-06] MEDS: OXYMETAZOLINE 0.05% NASAL SPRAY 15 ML BOTTLE BOTH NARES SCH (22:39)
[2019-08-07] MEDS: INSULIN REGULAR 100 UNIT/ML SUBCUT SCH ×4 (01:47→17:21)
[2019-08-07] MEDS: PIPERACILLIN/TAZOBACTAM 3,375 MG in SODIUM CHLORIDE 0.9% 100 ML IV SCH ×3 (01:52→17:05)
[2019-08-07] MEDS: OXAZEPAM 10 MG CAPSULE PO SCH ×5 (01:52→20:39)
[2019-08-07] MEDS: ALBUTEROL/IPRATROPIUM 3 ML NEB RESP TX SCH ×6 (03:25→23:23)
[2019-08-07 04:08] LABS: Allen Test Positive; Pt O2 Delivery Device Ventilator
[2019-08-07 04:13] LABS: ABG Base Excess 9.9 MMOL/L (-2.5-2.5); ABG HCO3 33.6 MMOL/L (20-26); ABG Oxygen Saturation 96.9 % (95-100); ABG PCO2 38.6 MM HG (35-48); ABG PH 7.543 (7.35-7.45); ABG PO2 82.7 MM HG (80-95); ABG TCO2 27.2 MMOL/L (23-27)
[2019-08-07] MEDS: fentaNYL INJ 1,250 MCG in SODIUM CHLORIDE 0.9% 225 ML IV PRN (04:34)
[2019-08-07] MEDS: MONTELUKAST 10 MG TABLET PO SCH (08:34)
[2019-08-07] MEDS: buPROPion 75 MG TABLET PER TUBE SCH ×2 (08:34→20:40)
[2019-08-07] MEDS: MULTIVITAMIN (CENTRUM) TABLET PO SCH (08:34)
[2019-08-07] MEDS: TAMSULOSIN 0.4 MG CAPSULE PO SCH ×2 (08:35→20:40)
[2019-08-07] MEDS: ATORVASTATIN 20 MG TABLET PO SCH (08:35)
[2019-08-07] MEDS: APIXABAN 2.5 MG TABLET PO SCH (08:35)
[2019-08-07] MEDS: DILTIAZEM 60 MG TABLET PO SCH ×4 (08:35→20:39)
[2019-08-07] MEDS: SOTALOL 80 MG TABLET PO SCH ×2 (08:35→20:40)
[2019-08-07] MEDS: LACTULOSE 20 GM/30 ML UDCUP PO SCH ×3 (08:36→21:01)
[2019-08-07] MEDS: PANTOPRAZOLE 40 MG VIAL IV SCH (08:36)
[2019-08-07] MEDS: DOCUSATE SODIUM 100 MG/10 ML UDCUP PER TUBE SCH ×2 (08:36→20:39)
[2019-08-07] MEDS: MOMETASONE/FORMOTEROL 200-5 INHALER 8.8 GM INH SCH ×2 (08:36→22:47)
[2019-08-07] MEDS: FUROSEMIDE 40 MG/4 ML VIAL IV SCH ×2 (08:39→17:04)
[2019-08-07] MEDS: THIAMINE 200 MG/2 ML VIAL IV SCH (08:40)
[2019-08-07] MEDS: FOLIC ACID INJ 1 MG in SYRINGE 1 EACH IV SCH (08:47)
[2019-08-07] MEDS: methylPREDNISolone SOD SUC 40 MG/1 ML VIAL IV SCH ×2 (08:58→20:41)
[2019-08-07] MEDS: NICOTINE 7 MG/24 HR PATCH TRANSDERM SCH (09:03)
[2019-08-07] MEDS: FLUoxetine 20 MG CAPSULE PO SCH (12:24)
[2019-08-07] MEDS: APIXABAN 5 MG TABLET PO SCH (21:01)
[2019-08-07] MEDS: OXYMETAZOLINE 0.05% NASAL SPRAY 15 ML BOTTLE BOTH NARES SCH (22:47)
[2019-08-08] MEDS: INSULIN REGULAR 100 UNIT/ML SUBCUT SCH ×4 (00:39→17:22)
[2019-08-08] MEDS: PIPERACILLIN/TAZOBACTAM 3,375 MG in SODIUM CHLORIDE 0.9% 100 ML IV SCH (02:41)
[2019-08-08] MEDS: ALBUTEROL/IPRATROPIUM 3 ML NEB RESP TX SCH ×6 (03:00→23:30)
[2019-08-08 04:14] LABS: ABG Base Excess 6.1 MMOL/L (-2.5-2.5); ABG HCO3 29.8 MMOL/L (20-26); ABG Oxygen Saturation 96.8 % (95-100); ABG PCO2 39.4 MM HG (35-48); ABG PH 7.496 (7.35-7.45); ABG PO2 88.2 MM HG (80-95); Allen Test Positive; Pt O2 Delivery Device Ventilator
[2019-08-08 04:37] LABS: Basophils # 0.1 10*3/uL (0.0-0.2); Basophils % 0.4 % (0.0-0.8); Hematocrit 53.1 VOL% (42.0-52.0); Hemoglobin 17.1 GM/DL (14.0-18.0); Immature Granulocytes % 3.1 %; Immature Granulocytes Absolute 0.52 #; Lymphocytes # 0.5 10*3/uL (1.4-4.0); Lymphocytes % 3.2 % (21.2-54.2); Mean Corpuscular HGB Conc 32.2 GM/DL (32-36); Mean Corpuscular Volume 104.5 FL (87-102); Mean Platelet Volume 11.1 FL (9.6-12.0); Monocytes % 5.8 % (1.7-12.7); NRBC # 0.05 10*3/uL; Neutrophils % 87.5 % (38.7-73.9); Platelet Count 192 T/CUMM (130-400); Red Blood Count 5.08 MC/CUMM (3.8-5.5); Red Cell Distribution Width 13.2 % (9.3-17.3); White Blood Count 16.8 T/CUMM (4-12)
[2019-08-08 05:05] LABS: Albumin 2.5 G/DL (3.4-5.0); Bilirubin,Total 1.3 MG/DL (0.2-1.0); Calcium 9.1 MG/DL (8.5-10.1); Osmolality,Calculated 307.3 MOS/KG (273-304); Total Protein 6.5 G/DL (6.4-8.3)
[2019-08-08 05:05] LABS: Band Neutrophils 1 % (0-10); Lymphocytes 2 % (20-55); Myelocytes 1 %; Segmented Neutrophils 87 % (50-85); Total Cells Counted 100
[2019-08-08 05:06] LABS: Hypochromasia Slight; Macrocytosis Slight
[2019-08-08 05:07] LABS: Platelet Estimate Adequate
[2019-08-08] MEDS: buPROPion 75 MG TABLET PER TUBE SCH ×2 (08:23→20:59)
[2019-08-08] MEDS: TAMSULOSIN 0.4 MG CAPSULE PO SCH ×2 (08:23→21:00)
[2019-08-08] MEDS: SOTALOL 80 MG TABLET PO SCH ×2 (08:23→20:59)
[2019-08-08] MEDS: MONTELUKAST 10 MG TABLET PO SCH (08:23)
[2019-08-08] MEDS: DILTIAZEM 60 MG TABLET PO SCH ×4 (08:23→21:00)
[2019-08-08] MEDS: ATORVASTATIN 20 MG TABLET PO SCH (08:23)
[2019-08-08] MEDS: DOCUSATE SODIUM 100 MG/10 ML UDCUP PER TUBE SCH ×2 (08:24→21:05)
[2019-08-08] MEDS: LACTULOSE 20 GM/30 ML UDCUP PO SCH ×3 (08:24→21:05)
[2019-08-08] MEDS: MULTIVITAMIN (CENTRUM) TABLET PO SCH (08:24)
[2019-08-08] MEDS: APIXABAN 5 MG TABLET PO SCH ×2 (08:46→21:07)
[2019-08-08] MEDS: THIAMINE 200 MG/2 ML VIAL IV SCH (08:46)
[2019-08-08] MEDS: PANTOPRAZOLE 40 MG VIAL IV SCH (08:46)
[2019-08-08] MEDS: methylPREDNISolone SOD SUC 40 MG/1 ML VIAL IV SCH ×2 (08:46→21:02)
[2019-08-08] MEDS: FOLIC ACID INJ 1 MG in SYRINGE 1 EACH IV SCH (08:47)
[2019-08-08] MEDS: NICOTINE 7 MG/24 HR PATCH TRANSDERM SCH (09:44)
[2019-08-08] MEDS ORDERED: LORazepam 2 MG/1 ML VIAL IV PRN (09:47)
[2019-08-08] MEDS: MOMETASONE/FORMOTEROL 200-5 INHALER 8.8 GM INH SCH ×2 (10:56→21:05)
[2019-08-08] MEDS: FLUoxetine 20 MG CAPSULE PO SCH (13:20)
[2019-08-08] MEDS: OXYMETAZOLINE 0.05% NASAL SPRAY 15 ML BOTTLE BOTH NARES SCH (21:05)
[2019-08-09] MEDS: INSULIN REGULAR 100 UNIT/ML SUBCUT SCH ×5 (00:27→23:51)
[2019-08-09] MEDS: ALBUTEROL/IPRATROPIUM 3 ML NEB RESP TX SCH ×5 (02:00→19:19)
[2019-08-09 06:17] LABS: Prealbumin 52.8 MG/DL (20-40)
[2019-08-09] MEDS: DILTIAZEM 60 MG TABLET PO SCH ×4 (09:01→21:19)
[2019-08-09] MEDS: MONTELUKAST 10 MG TABLET PO SCH (09:01)
[2019-08-09] MEDS: buPROPion 75 MG TABLET PER TUBE SCH ×2 (09:01→21:18)
[2019-08-09] MEDS: APIXABAN 5 MG TABLET PO SCH ×2 (09:01→21:19)
[2019-08-09] MEDS: MULTIVITAMIN (CENTRUM) TABLET PO SCH (09:02)
[2019-08-09] MEDS: NICOTINE 7 MG/24 HR PATCH TRANSDERM SCH (09:02)
[2019-08-09] MEDS: TAMSULOSIN 0.4 MG CAPSULE PO SCH ×2 (09:02→21:19)
[2019-08-09] MEDS: ATORVASTATIN 20 MG TABLET PO SCH (09:02)
[2019-08-09] MEDS: SOTALOL 80 MG TABLET PO SCH ×2 (09:02→21:19)
[2019-08-09] MEDS: THIAMINE 200 MG/2 ML VIAL IV SCH (09:03)
[2019-08-09] MEDS: methylPREDNISolone SOD SUC 40 MG/1 ML VIAL IV SCH ×2 (09:03→21:31)
[2019-08-09] MEDS: PANTOPRAZOLE 40 MG VIAL IV SCH (09:03)
[2019-08-09] MEDS: FOLIC ACID INJ 1 MG in SYRINGE 1 EACH IV SCH (09:04)
[2019-08-09] MEDS: ONDANSETRON 4 MG/2 ML VIAL IV PRN (10:48)
[2019-08-09] MEDS: LACTULOSE 20 GM/30 ML UDCUP PO SCH ×2 (11:27→15:01)
[2019-08-09] MEDS: DOCUSATE SODIUM 100 MG/10 ML UDCUP PER TUBE SCH (11:27)
[2019-08-09] MEDS: MOMETASONE/FORMOTEROL 200-5 INHALER 8.8 GM INH SCH ×2 (11:28→21:30)
[2019-08-09] MEDS: FLUoxetine 20 MG CAPSULE PO SCH (12:03)
[2019-08-09] MEDS: OXYMETAZOLINE 0.05% NASAL SPRAY 15 ML BOTTLE BOTH NARES SCH (21:30)
[2019-08-10] MEDS: ALBUTEROL/IPRATROPIUM 3 ML NEB RESP TX SCH ×5 (00:03→15:24)
[2019-08-10] MEDS: INSULIN REGULAR 100 UNIT/ML SUBCUT SCH ×2 (06:15→12:58)
[2019-08-10 06:22] LABS: Basophils # 0.1 10*3/uL (0.0-0.2); Basophils % 0.2 % (0.0-0.8); Eosinophils % 0.1 % (0.00-10.9); Hematocrit 54.6 VOL% (42.0-52.0); Hemoglobin 18.4 GM/DL (14.0-18.0); Immature Granulocytes % 1.5 %; Immature Granulocytes Absolute 0.36 #; Lymphocytes % 4.1 % (21.2-54.2); Mean Corpuscular HGB Conc 33.7 GM/DL (32-36); Mean Platelet Volume 10.9 FL (9.6-12.0); Monocytes % 6.3 % (1.7-12.7); NRBC # 0.04 10*3/uL; Neutrophils % 87.8 % (38.7-73.9); Platelet Count 196 T/CUMM (130-400); Red Blood Count 5.46 MC/CUMM (3.8-5.5); Red Cell Distribution Width 12.9 % (9.3-17.3); White Blood Count 24.1 T/CUMM (4-12)
[2019-08-10 06:43] LABS: Eosinophils 1 % (0-10); Lymphocytes 2 % (20-55); Platelet Estimate Adequate; Segmented Neutrophils 91 % (50-85); Total Cells Counted 100
[2019-08-10 06:44] LABS: Macrocytosis Slight
[2019-08-10 06:48] LABS: Albumin 2.2 G/DL (3.4-5.0); Bilirubin,Total 1.1 MG/DL (0.2-1.0); Calcium 8.6 MG/DL (8.5-10.1); Osmolality,Calculated 290.7 MOS/KG (273-304); Total Protein 5.8 G/DL (6.4-8.3)
[2019-08-10] MEDS: buPROPion 75 MG TABLET PER TUBE SCH (09:42)
[2019-08-10] MEDS: MULTIVITAMIN (CENTRUM) TABLET PO SCH (09:42)
[2019-08-10] MEDS: MONTELUKAST 10 MG TABLET PO SCH (09:43)
[2019-08-10] MEDS: ATORVASTATIN 20 MG TABLET PO SCH (09:44)
[2019-08-10] MEDS: DILTIAZEM 60 MG TABLET PO SCH ×2 (09:45→12:37)
[2019-08-10] MEDS: TAMSULOSIN 0.4 MG CAPSULE PO SCH (09:45)
[2019-08-10] MEDS: POTASSIUM CHLORIDE 20 MEQ TABLET PO PRN ×2 (09:46→15:21)
[2019-08-10] MEDS: APIXABAN 5 MG TABLET PO SCH (09:46)
[2019-08-10] MEDS: THIAMINE 200 MG/2 ML VIAL IV SCH (10:01)
[2019-08-10] MEDS: PANTOPRAZOLE 40 MG VIAL IV SCH (10:07)
[2019-08-10] MEDS: methylPREDNISolone SOD SUC 40 MG/1 ML VIAL IV SCH (10:10)
[2019-08-10] MEDS: FOLIC ACID INJ 1 MG in SYRINGE 1 EACH IV SCH (10:11)
[2019-08-10] MEDS: MOMETASONE/FORMOTEROL 200-5 INHALER 8.8 GM INH SCH (10:11)
[2019-08-10] MEDS: NICOTINE 7 MG/24 HR PATCH TRANSDERM SCH (10:13)
[2019-08-10] MEDS: SOTALOL 80 MG TABLET PO SCH (10:22)
[2019-08-10] MEDS: ONDANSETRON 4 MG/2 ML VIAL IV PRN (10:45)
[2019-08-10] MEDS ORDERED: SOTALOL 80 MG TABLET PO SCH (12:02)
[2019-08-10 12:37] VITALS: BP 130/88
[2019-08-10] MEDS: FLUoxetine 20 MG CAPSULE PO SCH (12:57)
[2019-08-11] MEDS ORDERED: predniSONE 20 MG TABLET PO SCH (09:00)
== END 2019-08-10 15:50 | disposition hospice, home (50) | DRG 492 ==
LOC: EDBD → EDUNIT# → N.ED 01:40 → N.EDINP 04:57 → N.3E 05:36 → N.TELEN 11:36 → N.ICU 17:22 → N.3E 07-30 14:04 → N.CC 07-31 13:28 → N.3E 08-09 16:08
PROVIDERS: ADMIT Surgery; ATTEND Surgery

== ENCOUNTER 2019-12-31 08:20 | Inpatient (IN) ==
[2019-12-31] MEDS ORDERED: NICOTINE 21 MG/24 HR PATCH TRANSDERM PRN (11:16)
[2019-12-31] MEDS ORDERED: diphenhydrAMINE CAP 25 MG CAPSULE PO PRN (11:16)
[2019-12-31] MEDS ORDERED: DEXTROSE 50% 25 GM/50 ML VIAL IV PRN (11:16)
[2019-12-31] MEDS ORDERED: ACETAMINOPHEN 325 MG TABLET PO PRN (11:16)
[2019-12-31] MEDS ORDERED: BISACODYL 5 MG TABLET PO PRN (11:16)
[2019-12-31] MEDS ORDERED: GLUCAGON 1 MG VIAL IM PRN (11:16)
[2019-12-31] MEDS ORDERED: ONDANSETRON 4 MG/2 ML VIAL IV PRN (11:16)
[2019-12-31 12:04] LABS: Basophils % 0.1 % (0.0-0.8); Hematocrit 56.9 VOL% (42.0-52.0); Hemoglobin 19.9 GM/DL (14.0-18.0); Immature Granulocytes % 0.3 %; Immature Granulocytes Absolute 0.03 #; Lymphocytes # 0.5 10*3/uL (1.4-4.0); Lymphocytes % 5.3 % (21.2-54.2); Mean Corpuscular Volume 97.4 FL (87-102); Mean Platelet Volume 10.6 FL (9.6-12.0); Neutrophils % 93.3 % (38.7-73.9); Platelet Count 176 T/CUMM (130-400); Red Blood Count 5.84 MC/CUMM (3.8-5.5); Red Cell Distribution Width 14.4 % (9.3-17.3); White Blood Count 8.8 T/CUMM (4-12)
[2019-12-31] MEDS: diphenhydrAMINE CAP 25 MG CAPSULE PO PRN ×3 (12:04→20:50)
[2019-12-31] MEDS: DILTIAZEM CD 240 MG CAPSULE PO SCH (12:04)
[2019-12-31] MEDS: FAMOTIDINE 20 MG TABLET PO SCH ×2 (12:04→22:41)
[2019-12-31] MEDS: SODIUM CHLORIDE 0.9% 1,000 ML IV SCH (12:05)
[2019-12-31 12:26] LABS: Anisocytosis 1+; Band Neutrophils 11 % (0-10); Lymphocytes 3 % (20-55); Platelet Estimate Normal; Segmented Neutrophils 85 % (50-85); Total Cells Counted 100
[2019-12-31 12:27] LABS: Macrocytosis Slight
[2019-12-31 12:28] LABS: Albumin 3.6 G/DL (3.4-5.0); Calcium 9.2 MG/DL (8.5-10.1); Osmolality,Calculated 270.2 MOS/KG (273-304); Total Protein 7.8 G/DL (6.4-8.3)
[2019-12-31] MEDS ORDERED: LORazepam 1 MG TABLET PO ONE (12:42)
[2019-12-31] MEDS ORDERED: SODIUM CHLORIDE 0.45% 1,000 ML IV SCH (13:30)
[2019-12-31] MEDS: SOTALOL 80 MG TABLET PO SCH ×2 (14:03→22:45)
[2019-12-31] MEDS: LORazepam 1 MG TABLET PO PRN ×2 (15:55→23:36)
[2019-12-31 16:32] LABS: Barbiturates Screen,Urine Negative (Negative); Benzodiazepines Screen,Urine Negative (Negative); Cannabinoid Screen,Urine Negative (Negative); Opiate Screen,Urine Positive (Negative); Phencyclidine Screen,Urine Negative (Negative)
[2019-12-31] MEDS: ALBUTEROL/IPRATROPIUM 3 ML NEB RESP TX SCH (20:16)
[2019-12-31] MEDS ORDERED: ZALEPLON 5 MG CAPSULE PO PRN (20:39)
[2019-12-31] MEDS ORDERED: TAMSULOSIN 0.4 MG CAPSULE PO SCH (21:00)
[2019-12-31] MEDS: APIXABAN 5 MG TABLET PO SCH (22:40)
[2019-12-31] MEDS: METOPROLOL TARTRATE 25 MG TABLET PO SCH (22:45)
[2019-12-31] MEDS ORDERED: diphenhydrAMINE 50 MG/1 ML VIAL IV ONE (23:26)
[2020-01-01] MEDS: SODIUM CHLORIDE 0.9% 1,000 ML IV SCH (02:00)
[2020-01-01 05:27] LABS: Basophils % 0.1 % (0.0-0.8); Hematocrit 52.8 VOL% (42.0-52.0); Hemoglobin 17.7 GM/DL (14.0-18.0); Immature Granulocytes % 0.7 %; Immature Granulocytes Absolute 0.09 #; Lymphocytes % 7.1 % (21.2-54.2); Mean Corpuscular HGB Conc 33.5 GM/DL (32-36); Mean Corpuscular Volume 101.7 FL (87-102); Mean Platelet Volume 10.8 FL (9.6-12.0); Monocytes % 7.8 % (1.7-12.7); Neutrophils % 84.3 % (38.7-73.9); Platelet Count 185 T/CUMM (130-400); Red Blood Count 5.19 MC/CUMM (3.8-5.5); Red Cell Distribution Width 14.4 % (9.3-17.3); White Blood Count 13.6 T/CUMM (4-12)
[2020-01-01 05:40] LABS: Osmolality,Calculated 278.7 MOS/KG (273-304)
[2020-01-01 05:43] LABS: Risk Ratio 3.76; VLDL CHOLESTEROL 28.8 MG/DL
[2020-01-01] MEDS: ALBUTEROL/IPRATROPIUM 3 ML NEB RESP TX SCH (08:00)
[2020-01-01] MEDS: LORazepam 1 MG TABLET PO PRN (08:45)
[2020-01-01] MEDS: FAMOTIDINE 20 MG TABLET PO SCH (08:45)
[2020-01-01] MEDS: diphenhydrAMINE CAP 25 MG CAPSULE PO PRN (08:46)
[2020-01-01] MEDS: DILTIAZEM CD 240 MG CAPSULE PO SCH (08:46)
[2020-01-01] MEDS: APIXABAN 5 MG TABLET PO SCH (08:46)
[2020-01-01] MEDS: SOTALOL 80 MG TABLET PO SCH (08:46)
[2020-01-01] MEDS: METOPROLOL TARTRATE 25 MG TABLET PO SCH (08:46)
[2020-01-01] MEDS ORDERED: MULTIVITAMIN (CENTRUM) TABLET PO SCH (09:00)
[2020-01-01] MEDS ORDERED: FOLIC ACID 1 MG TABLET PO SCH (09:00)
[2020-01-01] MEDS ORDERED: THIAMINE 100 MG TABLET PO SCH (09:00)
[2020-01-01] MEDS ORDERED: diphenhydrAMINE 2% CREAM 28 GM TUBE TOP PRN (09:08)
[2020-01-01] MEDS ORDERED: MUPIROCIN 2% OINT 22 GM TUBE TOP SCH (09:30)
[2020-01-01] MEDS ORDERED: CETIRIZINE 10 MG TABLET PO SCH (09:30)
[2020-01-01 11:49] VITALS: BP 136/80
[2020-01-01] MEDS ORDERED: TERAZOSIN 1 MG CAPSULE PO SCH (21:00)
== END 2020-01-01 13:30 | disposition home or self-care (01) | DRG 309 ==
LOC: N.TELEN 10:48 → SUATTDRO 10:48
PROVIDERS: ADMIT Internal Medicine; ATTEND Family Medicine

== ENCOUNTER 2020-01-09 12:04 | Observation (INO) ==
[2020-01-09] MEDS ORDERED: ONDANSETRON 4 MG/2 ML VIAL IV PRN (12:07)
[2020-01-09] MEDS ORDERED: ACETAMINOPHEN 325 MG TABLET PO PRN (12:07)
[2020-01-09] MEDS ORDERED: MAGNESIUM SULF RIDER 4 GM in PREMIX 1 EACH IV PRN (12:07)
[2020-01-09] MEDS ORDERED: hydrALAZINE 20 MG/1 ML VIAL IV PRN (12:07)
[2020-01-09] MEDS ORDERED: MAGNESIUM SULF RIDER 2 GM in PREMIX 1 EACH IV PRN (12:07)
[2020-01-09] MEDS: methylPREDNISolone SOD SUC 125 MG/2 ML VIAL IV SCH ×2 (15:34→21:38)
[2020-01-09] MEDS: SODIUM CHLORIDE 0.9% 1,000 ML IV SCH (15:39)
[2020-01-09] MEDS ORDERED: RIVAROXABAN 20 MG TABLET PO ONE (16:00)
[2020-01-09 16:11] LABS: Basophils # 0.1 10*3/uL (0.0-0.2); Basophils % 0.5 % (0.0-0.8); Eosinophils # 0.1 10*3/uL (0.0-0.87); Eosinophils % 0.7 % (0.00-10.9); Hematocrit 56.1 VOL% (42.0-52.0); Hemoglobin 19.5 GM/DL (14.0-18.0); Immature Granulocytes % 1.6 %; Immature Granulocytes Absolute 0.18 #; Lymphocytes # 1.5 10*3/uL (1.4-4.0); Lymphocytes % 13.4 % (21.2-54.2); Mean Corpuscular HGB Conc 34.8 GM/DL (32-36); Mean Corpuscular Volume 98.4 FL (87-102); Monocytes % 11.2 % (1.7-12.7); Neutrophils % 72.6 % (38.7-73.9); Platelet Count 191 T/CUMM (130-400); Red Cell Distribution Width 13.8 % (9.3-17.3)
[2020-01-09 16:31] LABS: Calcium 8.8 MG/DL (8.5-10.1); Thyroid Stimulating Hormone 0.847 uIU/ml (0.358-3.74)
[2020-01-09] MEDS ORDERED: diphenhydrAMINE 2% CREAM 28 GM TUBE TOP PRN (16:57)
[2020-01-09] MEDS: diphenhydrAMINE CAP 50 MG CAPSULE PO SCH (17:02)
[2020-01-09] MEDS: ALBUTEROL 2.5 MG/3 ML NEB RESP TX SCH ×2 (17:07→20:26)
[2020-01-09] MEDS: LORazepam 2 MG/1 ML VIAL IV PRN ×2 (17:11→21:38)
[2020-01-09] MEDS: METOPROLOL TARTRATE 5 MG/5 ML VIAL IV SCH (17:12)
[2020-01-09 17:26] LABS: ABG Base Excess -1.2 MMOL/L (-2.5-2.5); ABG HCO3 23.3 MMOL/L (20-26); ABG Oxygen Saturation 96.7 % (95-100); ABG PCO2 33.5 MM HG (35-48); ABG PH 7.425 (7.35-7.45); ABG TCO2 17.4 MMOL/L (23-27)
[2020-01-09 18:37] LABS: Apearance,Urine CLEAR (Clear); Bilirubin,Urine Negative (Negative); Blood, Urine Negative (Negative); Glucose,Urine (UA) 150 mg/dL (Negative); Ketones,Urine Negative (Negative); Mucus,Urine Occasional /LPF (Occasional); Nitrite,Urine Negative (Negative); Protein,Urine Negative; RBC,Urine <1 /HPF (0-4); Urine Color Yellow (Yellow); Urine Specific Gravity 1.018 (1.001-1.035); Urine Urobilinogen < 2.0 EU/DL (0.2-1.0); WBC,Urine <1 /HPF (0-6)
[2020-01-09] MEDS: FAMOTIDINE 20 MG TABLET PO SCH (20:33)
[2020-01-09] MEDS: SOTALOL 80 MG TABLET PO SCH (20:34)
[2020-01-09] MEDS: DIAZEPAM 5 MG TABLET PO SCH (20:34)
[2020-01-09] MEDS ORDERED: TERAZOSIN 1 MG CAPSULE PO SCH (21:00)
[2020-01-09] MEDS ORDERED: TAMSULOSIN 0.4 MG CAPSULE PO SCH (21:00)
[2020-01-10] MEDS: diphenhydrAMINE CAP 50 MG CAPSULE PO SCH ×3 (01:21→11:10)
[2020-01-10] MEDS: METOPROLOL TARTRATE 5 MG/5 ML VIAL IV SCH ×3 (01:22→11:10)
[2020-01-10] MEDS: ALBUTEROL 2.5 MG/3 ML NEB RESP TX SCH ×3 (01:40→13:35)
[2020-01-10] MEDS: methylPREDNISolone SOD SUC 125 MG/2 ML VIAL IV SCH ×2 (05:13→09:09)
[2020-01-10] MEDS ORDERED: CETIRIZINE 10 MG TABLET PO SCH ×2 (09:00→15:00)
[2020-01-10] MEDS ORDERED: MULTIVITAMIN (CENTRUM) TABLET PO SCH (09:00)
[2020-01-10] MEDS: FAMOTIDINE 20 MG TABLET PO SCH (09:10)
[2020-01-10] MEDS: DIAZEPAM 5 MG TABLET PO SCH (09:10)
[2020-01-10] MEDS: SOTALOL 80 MG TABLET PO SCH (09:11)
[2020-01-10] MEDS ORDERED: predniSONE 20 MG TABLET PO SCH (10:00)
[2020-01-10] MEDS: SODIUM CHLORIDE 0.9% 1,000 ML IV SCH (11:16)
[2020-01-10 11:27] VITALS: BP 146/110
[2020-01-10] MEDS ORDERED: RIVAROXABAN 20 MG TABLET PO SCH ×2 (17:00)
== END 2020-01-10 16:42 | disposition home or self-care (01) ==
LOC: N.TELEN
PROVIDERS: ADMIT Internal Medicine Cardiovascular Disease; ATTEND Internal Medicine Cardiovascular Disease

== ENCOUNTER 2020-05-04 13:06 | Observation (INO) ==
[2020-05-04 13:25] LABS: Basophils % 0.2 % (0.0-0.8); Eosinophils % 0.6 % (0.00-10.9); Hematocrit 47.4 VOL% (42.0-52.0); Hemoglobin 16.4 GM/DL (14.0-18.0); Immature Granulocytes % 0.8 %; Immature Granulocytes Absolute 0.05 #; Lymphocytes # 1.2 10*3/uL (1.4-4.0); Mean Corpuscular HGB Conc 34.6 GM/DL (32-36); Mean Corpuscular Volume 95.8 FL (87-102); Mean Platelet Volume 9.6 FL (9.6-12.0); Neutrophils % 68.4 % (38.7-73.9); Platelet Count 177 T/CUMM (130-400); Red Blood Count 4.95 MC/CUMM (3.8-5.5); White Blood Count 6.5 T/CUMM (4-12)
[2020-05-04 13:50] LABS: Albumin 3.3 G/DL (3.4-5.0); Bilirubin,Total 0.9 MG/DL (0.2-1.0); Calcium 8.5 MG/DL (8.5-10.1); Osmolality,Calculated 276.7 MOS/KG (273-304); Total Protein 6.2 G/DL (6.4-8.3)
[2020-05-04] MEDS ORDERED: LORazepam 2 MG/1 ML VIAL IV STA (15:07)
[2020-05-04] MEDS ORDERED: LORazepam 2 MG/1 ML VIAL ONE (15:08)
[2020-05-04] MEDS ORDERED: ONDANSETRON 4 MG/2 ML VIAL IV PRN (16:13)
[2020-05-04] MEDS ORDERED: DEXTROSE 50% 25 GM/50 ML VIAL IV PRN (16:13)
[2020-05-04] MEDS ORDERED: ZALEPLON 5 MG CAPSULE PO PRN (16:13)
[2020-05-04] MEDS ORDERED: guaiFENesin/DM ER 600-30 MG TABLET PO PRN (16:13)
[2020-05-04] MEDS ORDERED: hydrALAZINE 20 MG/1 ML VIAL IV PRN (16:13)
[2020-05-04] MEDS ORDERED: ACETAMINOPHEN 325 MG TABLET PO PRN (16:13)
[2020-05-04] MEDS ORDERED: LACTULOSE 20 GM/30 ML UDCUP PO PRN (16:13)
[2020-05-04] MEDS ORDERED: CALCIUM CARBONATE CHEW 500 MG TABLET PO PRN (16:13)
[2020-05-04] MEDS ORDERED: SIMETHICONE CHEW 125 MG TABLET PO PRN (16:13)
[2020-05-04] MEDS ORDERED: diphenhydrAMINE CAP 25 MG CAPSULE PO PRN (16:13)
[2020-05-04] MEDS ORDERED: traZODone 50 MG TABLET PO PRN (16:13)
[2020-05-04] MEDS ORDERED: DOCUSATE SODIUM 100 MG CAPSULE PO PRN (16:13)
[2020-05-04] MEDS ORDERED: NICOTINE 21 MG/24 HR PATCH TRANSDERM PRN (16:13)
[2020-05-04] MEDS ORDERED: ALUMINUM/MAGNES/SIMETH MAX STR 30 ML UDCUP PO PRN (16:13)
[2020-05-04] MEDS ORDERED: GLUCAGON 1 MG VIAL IM PRN (16:13)
[2020-05-04] MEDS ORDERED: PROMETHAZINE 25 MG TABLET PO PRN (16:13)
[2020-05-04] MEDS ORDERED: BISACODYL 5 MG TABLET PO PRN (16:13)
[2020-05-04] MEDS ORDERED: CETIRIZINE 10 MG TABLET PO PRN (16:17)
[2020-05-04] MEDS ORDERED: hydrOXYzine HCL 25 MG TABLET PO PRN (16:17)
[2020-05-04] MEDS ORDERED: EPINEPHRINE 0.3 MG/0.3 ML IM PRN (16:17)
[2020-05-04] MEDS ORDERED: OXYMETAZOLINE 0.05% NASAL SPRAY 15 ML BOTTLE BOTH NARES PRN (16:17)
[2020-05-04] MEDS ORDERED: AUTO INJECTOR IM PRN (16:17)
[2020-05-04] MEDS ORDERED: MAGNESIUM SULF RIDER 4 GM in PREMIX 1 EACH IV PRN (16:40)
[2020-05-04] MEDS ORDERED: MAGNESIUM SULF RIDER 2 GM in PREMIX 1 EACH IV PRN (16:40)
[2020-05-04] MEDS ORDERED: POTASSIUM CHLORIDE RIDER 10 MEQ in PREMIX 1 EACH IV PRN (16:40)
[2020-05-04] MEDS ORDERED: LORazepam 2 MG/1 ML VIAL IV PRN (17:43)
[2020-05-04] MEDS ORDERED: TAMSULOSIN 0.4 MG CAPSULE PO SCH (21:00)
[2020-05-04] MEDS ORDERED: FLUTICASONE 50 MCG NASAL SPRAY 16 GM BOTTLE BOTH NARES PRN (21:00)
[2020-05-04] MEDS ORDERED: TERAZOSIN 1 MG CAPSULE PO SCH (21:00)
[2020-05-04] MEDS ORDERED: ATORVASTATIN 20 MG TABLET PO SCH (21:00)
[2020-05-04] MEDS: DILTIAZEM CD 240 MG CAPSULE PO SCH (21:05)
[2020-05-04] MEDS: APIXABAN 5 MG TABLET PO SCH (21:06)
[2020-05-04] MEDS: IPRATROPIUM 0.03% NASAL SPRAY 30 ML BOTTLE BOTH NARES SCH (21:13)
[2020-05-04] MEDS: METOPROLOL TARTRATE 25 MG TABLET PO SCH (21:13)
[2020-05-04] MEDS: FLUoxetine 20 MG CAPSULE PO SCH (21:13)
[2020-05-05 05:50] LABS: Basophils % 0.3 % (0.0-0.8); Eosinophils # 0.1 10*3/uL (0.0-0.87); Eosinophils % 1.6 % (0.00-10.9); Hematocrit 47.7 VOL% (42.0-52.0); Hemoglobin 16.1 GM/DL (14.0-18.0); Immature Granulocytes % 0.8 %; Immature Granulocytes Absolute 0.06 #; Lymphocytes # 1.4 10*3/uL (1.4-4.0); Lymphocytes % 19.8 % (21.2-54.2); Mean Corpuscular HGB Conc 33.8 GM/DL (32-36); Mean Corpuscular Volume 98.1 FL (87-102); Mean Platelet Volume 10.5 FL (9.6-12.0); Monocytes % 11.3 % (1.7-12.7); Neutrophils % 66.2 % (38.7-73.9); Platelet Count 177 T/CUMM (130-400); Red Blood Count 4.86 MC/CUMM (3.8-5.5); Red Cell Distribution Width 12.7 % (9.3-17.3); White Blood Count 7.3 T/CUMM (4-12)
[2020-05-05 05:58] LABS: Albumin 2.8 G/DL (3.4-5.0); Bilirubin,Total 0.7 MG/DL (0.2-1.0); Calcium 8.1 MG/DL (8.5-10.1); Osmolality,Calculated 271.8 MOS/KG (273-304); Total Protein 5.9 G/DL (6.4-8.3)
[2020-05-05] MEDS ORDERED: POTASSIUM CHLORIDE 20 MEQ TABLET PO PRN (08:00)
[2020-05-05] MEDS: FLUoxetine 20 MG CAPSULE PO SCH (08:57)
[2020-05-05] MEDS: APIXABAN 5 MG TABLET PO SCH (08:57)
[2020-05-05] MEDS: DILTIAZEM CD 240 MG CAPSULE PO SCH (08:57)
[2020-05-05] MEDS: METOPROLOL TARTRATE 25 MG TABLET PO SCH (08:58)
[2020-05-05] MEDS ORDERED: SPIRONOLACTONE 25 MG TABLET PO SCH (09:00)
[2020-05-05] MEDS ORDERED: PANTOPRAZOLE 40 MG TABLET PO SCH (09:00)
[2020-05-05] MEDS ORDERED: FUROSEMIDE 40 MG TABLET PO SCH (09:00)
[2020-05-05] MEDS ORDERED: MONTELUKAST 10 MG TABLET PO SCH (09:00)
[2020-05-05] MEDS ORDERED: COLCHICINE 0.6 MG CAPSULE PO SCH (09:00)
[2020-05-05] MEDS ORDERED: buPROPion XL 150 MG TABLET PO SCH (09:00)
[2020-05-05] MEDS: IPRATROPIUM 0.03% NASAL SPRAY 30 ML BOTTLE BOTH NARES SCH (10:19)
[2020-05-05 13:11] VITALS: BP 135/86
== END 2020-05-05 14:05 | disposition home or self-care (01) ==
LOC: N.ED 13:06 → N.EDINP 13:06 → N.TELEN 19:12
PROVIDERS: ADMIT Emergency Medicine; ATTEND Emergency Medicine

== ENCOUNTER 2021-11-10 20:08 | Inpatient (IN) ==
[2021-11-10 20:32] LABS: Basophils % 0.4 % (0.0-0.8); Eosinophils # 0.4 10*3/uL (0.0-0.87); Eosinophils % 4.4 % (0.00-10.9); Hematocrit 49.7 VOL% (42.0-52.0); Hemoglobin 15.7 GM/DL (14.0-18.0); Immature Granulocytes % 0.4 %; Immature Granulocytes Absolute 0.04 #; Lymphocytes # 1.7 10*3/uL (1.4-4.0); Lymphocytes % 17.6 % (21.2-54.2); Mean Corpuscular HGB Conc 31.6 GM/DL (32-36); Mean Corpuscular Volume 80.3 FL (87-102); Monocytes # 0.9 10*3/uL (0.11-0.8); Monocytes % 9.8 % (1.7-12.7); Neutrophils % 67.4 % (38.7-73.9); Platelet Count 200 T/CUMM (130-400); Red Blood Count 6.19 MC/CUMM (3.8-5.5); Red Cell Distribution Width 17.5 % (9.3-17.3); White Blood Count 9.6 T/CUMM (4-12)
[2021-11-10 20:47] LABS: Albumin 3.5 G/DL (3.4-5.0); Bilirubin,Total 0.5 MG/DL (0.20-1.00); Osmolality,Calculated 274.5 MOS/KG (273-304); Potassium 3.8 MMOL/L (3.5-5.1); Total Protein 7.2 G/DL (6.4-8.2)
[2021-11-10] MEDS ORDERED: ENOXAPARIN 100 MG/ML SYRINGE SUBCUT STA (20:57)
[2021-11-10] MEDS ORDERED: ASPIRIN 325 MG TABLET PO STA (20:57)
[2021-11-10] MEDS ORDERED: ONDANSETRON 4 MG/2 ML VIAL IV STA (20:57)
[2021-11-10] MEDS ORDERED: NITROGLYCERIN 2% OINT 1 INCH/GM PACK TOP STA (20:57)
[2021-11-10] MEDS ORDERED: MORPHINE 2 MG/1 ML SYRINGE IV STA (21:00)
[2021-11-10] MEDS ORDERED: SODIUM CHLORIDE 0.9% 500 ML IV STA (22:12)
[2021-11-10] MEDS ORDERED: PIPERACILLIN/TAZOBACTAM 3,375 MG in SODIUM CHLORIDE 0.9% 100 ML IV STA (22:12)
[2021-11-10] MEDS ORDERED: HYDROmorphone 1 MG/1 ML SYRINGE IV STA (22:43)
[2021-11-10] MEDS ORDERED: DEXAMETHASONE 4 MG/1 ML VIAL IV STA (22:43)
[2021-11-10] MEDS ORDERED: DEXAMETHASONE 10 MG/1 ML VIAL IV STA (22:44)
[2021-11-10] MEDS ORDERED: DEXTROSE 10% 250 ML BAG IV PRN (22:45)
[2021-11-10] MEDS ORDERED: diphenhydrAMINE CAP 25 MG CAPSULE PO PRN (22:45)
[2021-11-10] MEDS ORDERED: ACETAMINOPHEN 325 MG TABLET PO PRN (22:45)
[2021-11-10] MEDS ORDERED: ONDANSETRON 4 MG/2 ML VIAL IV PRN (22:45)
[2021-11-10] MEDS ORDERED: guaiFENesin/DM ER 600-30 MG TABLET PO PRN (22:45)
[2021-11-10] MEDS ORDERED: NICOTINE 21 MG/24 HR PATCH TRANSDERM PRN (22:45)
[2021-11-10] MEDS ORDERED: hydrALAZINE 20 MG/1 ML VIAL IV PRN (22:45)
[2021-11-10] MEDS ORDERED: MORPHINE 2 MG/1 ML SYRINGE IV PRN (22:45)
[2021-11-10] MEDS ORDERED: GLUCAGON 1 MG VIAL IM PRN (22:45)
[2021-11-11] MEDS: ALBUTEROL/IPRATROPIUM 3 ML NEB RESP TX SCH ×4 (00:55→19:21)
[2021-11-11] MEDS ORDERED: ZALEPLON 5 MG CAPSULE PO STA (01:27)
[2021-11-11 04:09] LABS: Basophils % 0.1 % (0.0-0.8); Eosinophils % 0.1 % (0.00-10.9); Hematocrit 47.1 VOL% (42.0-52.0); Hemoglobin 14.7 GM/DL (14.0-18.0); Immature Granulocytes % 0.5 %; Immature Granulocytes Absolute 0.05 #; Lymphocytes # 0.7 10*3/uL (1.4-4.0); Lymphocytes % 7.1 % (21.2-54.2); Mean Corpuscular HGB Conc 31.2 GM/DL (32-36); Mean Corpuscular Volume 81.1 FL (87-102); Mean Platelet Volume 10.5 FL (9.6-12.0); Monocytes # 0.1 10*3/uL (0.11-0.8); Neutrophils % 91.2 % (38.7-73.9); Platelet Count 205 T/CUMM (130-400); Red Blood Count 5.81 MC/CUMM (3.8-5.5); Red Cell Distribution Width 17.5 % (9.3-17.3); White Blood Count 9.6 T/CUMM (4-12)
[2021-11-11 04:29] LABS: Hypochromia Slight; Lymphocytes 6 % (20-55); Microcytosis Slight; Platelet Estimate Adequate; Total Cells Counted 100
[2021-11-11 04:32] LABS: Albumin 3.3 G/DL (3.4-5.0); Bilirubin,Total 0.6 MG/DL (0.20-1.00); Calcium 8.8 MG/DL (8.5-10.1); Osmolality,Calculated 281.8 MOS/KG (273-304); PT Patient Result 11.3 SECS (10.5-12.0); Partial Thromboplastin Time 33.9 SECS (23.7-32.9); Potassium 4.5 MMOL/L (3.5-5.1)
[2021-11-11] MEDS ORDERED: ENOXAPARIN 150 MG/ML SYRINGE SUBCUT SCH (09:00)
[2021-11-11] MEDS: buPROPion XL 150 MG TABLET PO SCH (11:01)
[2021-11-11] MEDS: DILTIAZEM CD 240 MG CAPSULE PO SCH ×2 (11:01→21:42)
[2021-11-11] MEDS: PANTOPRAZOLE 40 MG TABLET PO SCH (11:01)
[2021-11-11] MEDS ORDERED: PNEUMOCOCCAL VACCINE (23 VALENT) 0.5 ML VIAL IM ONE (11:30)
[2021-11-11 14:15] LABS: CKMB % 4.43 %
[2021-11-11 14:17] LABS: High Sensitive Troponin I* 3002.9 ng/L (0-78)
[2021-11-11] MEDS ORDERED: MAGNESIUM SULF RIDER 2 GM/50 ML PREMIX IV PRN (14:17)
[2021-11-11] MEDS ORDERED: diphenhydrAMINE CAP 50 MG CAPSULE PO ONE (14:17)
[2021-11-11] MEDS ORDERED: DIAZEPAM 5 MG TABLET PO ONE (14:17)
[2021-11-11] MEDS ORDERED: POTASSIUM CHLORIDE RIDER 10 MEQ/100 ML PREMIX IV PRN (14:17)
[2021-11-11] MEDS: SODIUM CHLORIDE 0.9% 1,000 ML IV SCH ×2 (14:34→22:35)
[2021-11-11] MEDS ORDERED: HEPARIN/NACL 0.9% 2 UNITS/ML 2,000 UNIT/1,000 ML BAG IV ONE (14:34)
[2021-11-11] MEDS ORDERED: VERAPAMIL 5 MG/2 ML VIAL ONE (14:42)
[2021-11-11] MEDS ORDERED: NITROGLYCERIN DRIP 50 MG/250 ML BOTTLE IV ONE (14:42)
[2021-11-11] MEDS ORDERED: fentaNYL 100 MCG/2 ML VIAL ONE (14:42)
[2021-11-11] MEDS ORDERED: MIDAZOLAM 2 MG/2 ML VIAL ONE ×2 (14:42→15:10)
[2021-11-11] MEDS ORDERED: HYDROmorphone 1 MG/1 ML SYRINGE ONE ×2 (14:58→15:13)
[2021-11-11] MEDS ORDERED: ENOXAPARIN 60 MG/0.6 ML SYRINGE ONE (15:00)
[2021-11-11] MEDS ORDERED: TICAGRELOR 90 MG TABLET ONE (15:08)
[2021-11-11] MEDS ORDERED: diphenhydrAMINE 50 MG/1 ML VIAL ONE (15:13)
[2021-11-11] MEDS ORDERED: NITROGLYCERIN SL 0.4 MG TABLET SL PRN (15:44)
[2021-11-11] MEDS ORDERED: ATORVASTATIN 20 MG TABLET PO SCH (21:00)
[2021-11-11] MEDS ORDERED: TAMSULOSIN 0.4 MG CAPSULE PO SCH (21:00)
[2021-11-11] MEDS ORDERED: ATORVASTATIN 40 MG TABLET PO SCH (21:00)
[2021-11-11] MEDS ORDERED: METOPROLOL TARTRATE 25 MG TABLET PO SCH (21:00)
[2021-11-11] MEDS ORDERED: TICAGRELOR 90 MG TABLET PO SCH (21:00)
[2021-11-11] MEDS ORDERED: ALPRAZolam 0.5 MG TABLET PO ONE (23:07)
[2021-11-11] MEDS ORDERED: MELATONIN 3 MG TABLET PO ONE (23:09)
[2021-11-12] MEDS: ALBUTEROL/IPRATROPIUM 3 ML NEB RESP TX SCH ×2 (00:29→07:40)
[2021-11-12 04:28] LABS: Basophils % 0.1 % (0.0-0.8); Hematocrit 43.6 VOL% (42.0-52.0); Hemoglobin 13.7 GM/DL (14.0-18.0); Immature Granulocytes % 0.5 %; Immature Granulocytes Absolute 0.06 #; Mean Corpuscular HGB Conc 31.4 GM/DL (32-36); Mean Platelet Volume 10.4 FL (9.6-12.0); Monocytes # 0.8 10*3/uL (0.11-0.8); Monocytes % 6.2 % (1.7-12.7); Neutrophils % 85.2 % (38.7-73.9); Platelet Count 216 T/CUMM (130-400); Red Blood Count 5.32 MC/CUMM (3.8-5.5); Red Cell Distribution Width 16.9 % (9.3-17.3); White Blood Count 12.2 T/CUMM (4-12)
[2021-11-12 04:57] LABS: Calcium 8.8 MG/DL (8.5-10.1); Osmolality,Calculated 280.4 MOS/KG (273-304); Potassium 4.1 MMOL/L (3.5-5.1)
[2021-11-12 05:00] LABS: Risk Ratio 4.06; VLDL Cholesterol 34.6 MG/DL
[2021-11-12 06:55] LABS: Hepatitis B Core IgM Quant 0.14 Index; Hepatitis B Surface Ag Quant < 0.10 Index; Hepatitis B Surface Ag Result Non-Reactive (NonReactive); Hepatitis C Virus Ab Result Non-Reactive (NonReactive)
[2021-11-12] MEDS ORDERED: CLOPIDOGREL 300 MG TABLET PO ONE (07:14)
[2021-11-12] MEDS: SODIUM CHLORIDE 0.9% 1,000 ML IV SCH (07:52)
[2021-11-12 08:11] VITALS: BP 128/76
[2021-11-12] MEDS ORDERED: ASPIRIN EC 81 MG TABLET PO SCH (09:00)
[2021-11-12] MEDS ORDERED: CLOPIDOGREL 75 MG TABLET PO ONE (09:00)
[2021-11-12] MEDS ORDERED: METOPROLOL SUCCINATE XL 25 MG TABLET PO SCH (09:00)
[2021-11-12] MEDS: buPROPion XL 150 MG TABLET PO SCH (09:00)
[2021-11-12] MEDS ORDERED: APIXABAN 5 MG TABLET PO SCH (09:00)
[2021-11-12] MEDS ORDERED: LOSARTAN 25 MG TABLET PO SCH (09:00)
[2021-11-12] MEDS: PANTOPRAZOLE 40 MG TABLET PO SCH (09:01)
[2021-11-12] MEDS: DILTIAZEM CD 240 MG CAPSULE PO SCH (09:01)
[2021-11-13] MEDS ORDERED: CLOPIDOGREL 75 MG TABLET PO SCH (09:00)
== END 2021-11-12 11:30 | disposition home or self-care (01) | DRG 246 ==
LOC: N.ED 20:08 → N.EDINP 22:45 → N.TELEN 11-11 10:43
PROVIDERS: ADMIT Emergency Medicine; ATTEND Emergency Medicine
PROC: CLCCHCL (ICD-10-PCS; 2021-11-11 14:45)

== ENCOUNTER 2022-02-03 10:47 | Observation (INO) ==
[2022-02-03] MEDS ORDERED: SODIUM CHLORIDE 0.9% 1,000 ML IV STA (11:16)
[2022-02-03 11:26] LABS: Basophils % 0.2 % (0.0-0.8); Eosinophils # 0.3 10*3/uL (0.0-0.87); Eosinophils % 2.8 % (0.00-10.9); Hematocrit 37.2 VOL% (42.0-52.0); Hemoglobin 11.9 GM/DL (14.0-18.0); Immature Granulocytes % 0.4 %; Immature Granulocytes Absolute 0.05 #; Lymphocytes # 1.1 10*3/uL (1.4-4.0); Lymphocytes % 9.5 % (21.2-54.2); Mean Corpuscular Volume 83.4 FL (87-102); Mean Platelet Volume 10.6 FL (9.6-12.0); Neutrophils % 78.1 % (38.7-73.9); Platelet Count 165 T/CUMM (130-400); Red Blood Count 4.46 MC/CUMM (3.8-5.5); Red Cell Distribution Width 18.1 % (9.3-17.3); White Blood Count 11.4 T/CUMM (4-12)
[2022-02-03 11:45] LABS: Albumin 3.2 G/DL (3.4-5.0); Bilirubin,Total 0.5 MG/DL (0.20-1.00); Calcium 9.3 MG/DL (8.5-10.1); PT Patient Result 11.1 SECS (10.1-12.1); Potassium 4.1 MMOL/L (3.5-5.1); Total Protein 6.5 G/DL (6.4-8.2)
[2022-02-03 12:54] LABS: Mucus,Urine Occasional /LPF (Occasional); RBC,Urine 1 /HPF (0-4)
[2022-02-03 12:55] LABS: Glucose,Urine (UA) Negative (Negative); Ketones,Urine Negative (Negative); Protein,Urine Negative (Negative); Urine Appearance Clear (Clear); Urine Color Yellow (Yellow); Urine Specific Gravity <= 1.005 (1.001-1.035)
[2022-02-03 12:56] LABS: Bilirubin,Urine Negative (Negative); Nitrite,Urine Negative (Negative)
[2022-02-03 12:57] LABS: Blood, Urine Negative (Negative); Urine Urobilinogen 0.2 eU/dL (<2.0)
[2022-02-03] MEDS ORDERED: ERTAPENEM 1,000 MG in SODIUM CHLORIDE 0.9% 100 ML IV SCH (13:00)
[2022-02-03] MEDS ORDERED: HYDROmorphone 1 MG/1 ML SYRINGE IV STA (14:30)
[2022-02-03] MEDS ORDERED: GLUCAGON 1 MG VIAL IM PRN (14:31)
[2022-02-03] MEDS ORDERED: DEXTROSE 10% 250 ML BAG IV PRN (14:31)
[2022-02-03] MEDS ORDERED: ONDANSETRON 4 MG/2 ML VIAL IV PRN (14:31)
[2022-02-03] MEDS ORDERED: hydrALAZINE 20 MG/1 ML VIAL IV PRN (14:31)
[2022-02-03] MEDS ORDERED: ACETAMINOPHEN 325 MG TABLET PO PRN (14:31)
[2022-02-03 15:47] LABS: Hematocrit 36.8 VOL% (42.0-52.0); Hemoglobin 11.8 GM/DL (14.0-18.0)
[2022-02-03] MEDS: LACTATED RINGERS 1,000 ML IV SCH (15:58)
[2022-02-03] MEDS: PIPERACILLIN/TAZOBACTAM 3,375 MG in SODIUM CHLORIDE 0.9% 100 ML IV SCH ×2 (16:01→23:17)
[2022-02-03] MEDS ORDERED: BACLOFEN 10 MG TABLET PO PRN (16:06)
[2022-02-03] MEDS: HYDROmorphone 1 MG/1 ML SYRINGE IV PRN (19:31)
[2022-02-03] MEDS: TERAZOSIN 1 MG CAPSULE PO SCH (20:43)
[2022-02-03] MEDS: TAMSULOSIN 0.4 MG CAPSULE PO SCH (20:43)
[2022-02-03] MEDS: ATORVASTATIN 80 MG TABLET PO SCH (20:43)
[2022-02-03] MEDS: PANTOPRAZOLE 40 MG VIAL IV SCH (20:45)
[2022-02-04] MEDS ORDERED: ZALEPLON 5 MG CAPSULE PO ONE ×2 (00:15→22:50)
[2022-02-04] MEDS: LACTATED RINGERS 1,000 ML IV SCH ×3 (02:15→20:49)
[2022-02-04 02:53] LABS: Hematocrit 29.7 VOL% (42.0-52.0); Hemoglobin 9.5 GM/DL (14.0-18.0)
[2022-02-04 05:50] LABS: Basophils % 0.4 % (0.0-0.8); Eosinophils # 0.7 10*3/uL (0.0-0.87); Eosinophils % 8.2 % (0.00-10.9); Hematocrit 30.5 VOL% (42.0-52.0); Hemoglobin 9.5 GM/DL (14.0-18.0); Immature Granulocytes % 0.6 %; Immature Granulocytes Absolute 0.05 #; Lymphocytes % 12.6 % (21.2-54.2); Mean Corpuscular HGB Conc 31.1 GM/DL (32-36); Mean Platelet Volume 10.5 FL (9.6-12.0); Monocytes % 12.3 % (1.7-12.7); Neutrophils % 65.9 % (38.7-73.9); Platelet Count 140 T/CUMM (130-400); Red Blood Count 3.59 MC/CUMM (3.8-5.5); Red Cell Distribution Width 18.3 % (9.3-17.3); White Blood Count 8.2 T/CUMM (4-12)
[2022-02-04] MEDS: PIPERACILLIN/TAZOBACTAM 3,375 MG in SODIUM CHLORIDE 0.9% 100 ML IV SCH ×3 (06:07→23:25)
[2022-02-04 06:12] LABS: Calcium 8.5 MG/DL (8.5-10.1); Osmolality,Calculated 276.7 MOS/KG (273-304); Risk Ratio 2.39; Thyroid Stimulating Hormone 2.39 uIU/ml (0.358-3.74); VLDL Cholesterol 28.6 MG/DL
[2022-02-04] MEDS ORDERED: NON-FORMULARY MEDICATION (Modafinil 200 mg tablet) PO SCH (09:00)
[2022-02-04] MEDS ORDERED: DOXEPIN 6 MG PO SCH (09:00)
[2022-02-04 09:05] LABS: Hematocrit 29.1 VOL% (42.0-52.0); Hemoglobin 9.3 GM/DL (14.0-18.0)
[2022-02-04] MEDS: LURASIDONE 40 MG TABLET PO SCH (09:26)
[2022-02-04] MEDS: LOSARTAN 25 MG TABLET PO SCH (09:28)
[2022-02-04] MEDS: CLOPIDOGREL 75 MG TABLET PO SCH (09:28)
[2022-02-04] MEDS: FLUoxetine 20 MG CAPSULE PO SCH (09:29)
[2022-02-04] MEDS: METOPROLOL SUCCINATE XL 25 MG TABLET PO SCH (09:29)
[2022-02-04] MEDS: PANTOPRAZOLE 40 MG VIAL IV SCH ×2 (09:30→20:43)
[2022-02-04] MEDS: DILTIAZEM CD 240 MG CAPSULE PO SCH (09:31)
[2022-02-04] MEDS: HYDROmorphone 1 MG/1 ML SYRINGE IV PRN ×3 (09:40→22:23)
[2022-02-04 17:01] LABS: Hematocrit 29.7 VOL% (42.0-52.0); Hemoglobin 9.2 GM/DL (14.0-18.0)
[2022-02-04] MEDS: TERAZOSIN 1 MG CAPSULE PO SCH (20:41)
[2022-02-04] MEDS: TAMSULOSIN 0.4 MG CAPSULE PO SCH (20:41)
[2022-02-04] MEDS: ATORVASTATIN 80 MG TABLET PO SCH (20:41)
[2022-02-05 05:31] LABS: Basophils % 0.3 % (0.0-0.8); Eosinophils # 0.9 10*3/uL (0.0-0.87); Eosinophils % 13.2 % (0.00-10.9); Hematocrit 28.6 VOL% (42.0-52.0); Immature Granulocytes % 0.7 %; Immature Granulocytes Absolute 0.05 #; Lymphocytes # 1.2 10*3/uL (1.4-4.0); Lymphocytes % 17.2 % (21.2-54.2); Mean Corpuscular HGB Conc 31.5 GM/DL (32-36); Mean Corpuscular Volume 85.6 FL (87-102); Mean Platelet Volume 10.2 FL (9.6-12.0); Monocytes # 0.7 10*3/uL (0.11-0.8); Monocytes % 10.8 % (1.7-12.7); NRBC # 0.02 10*3/uL; Neutrophils % 57.8 % (38.7-73.9); Platelet Count 157 T/CUMM (130-400); Red Blood Count 3.34 MC/CUMM (3.8-5.5); Red Cell Distribution Width 18.3 % (9.3-17.3); White Blood Count 6.8 T/CUMM (4-12)
[2022-02-05 05:50] LABS: Calcium 8.5 MG/DL (8.5-10.1); Osmolality,Calculated 276.7 MOS/KG (273-304); Potassium 3.7 MMOL/L (3.5-5.1)
[2022-02-05 06:05] LABS: Band Neutrophils 2 % (0-10); Eosinophils 13 % (0-10); Lymphocytes 13 % (20-55); Microcytosis 1+; Polychromasia Slight; Total Cells Counted 100
[2022-02-05 06:06] LABS: Ovalocytes Slight; Platelet Estimate Adequate
[2022-02-05 06:07] LABS: Hypochromia Slight
[2022-02-05] MEDS: PIPERACILLIN/TAZOBACTAM 3,375 MG in SODIUM CHLORIDE 0.9% 100 ML IV SCH ×3 (06:17→23:28)
[2022-02-05] MEDS: HYDROmorphone 1 MG/1 ML SYRINGE IV PRN ×5 (06:32→23:36)
[2022-02-05] MEDS: CLOPIDOGREL 75 MG TABLET PO SCH ×2 (08:04→09:38)
[2022-02-05] MEDS: FLUoxetine 20 MG CAPSULE PO SCH ×2 (08:04→09:34)
[2022-02-05] MEDS: LURASIDONE 40 MG TABLET PO SCH ×2 (08:04→09:34)
[2022-02-05] MEDS: METOPROLOL SUCCINATE XL 25 MG TABLET PO SCH (08:13)
[2022-02-05] MEDS: DILTIAZEM CD 240 MG CAPSULE PO SCH (08:13)
[2022-02-05] MEDS: LOSARTAN 25 MG TABLET PO SCH (08:13)
[2022-02-05] MEDS: PANTOPRAZOLE 40 MG VIAL IV SCH ×2 (08:20→20:45)
[2022-02-05] MEDS ORDERED: ZALEPLON 5 MG CAPSULE PO PRN (18:38)
[2022-02-05] MEDS: TAMSULOSIN 0.4 MG CAPSULE PO SCH (20:44)
[2022-02-05] MEDS: ATORVASTATIN 80 MG TABLET PO SCH (20:44)
[2022-02-05] MEDS: TERAZOSIN 1 MG CAPSULE PO SCH (20:44)
[2022-02-05] MEDS: LACTATED RINGERS 1,000 ML IV SCH (22:08)
[2022-02-06] MEDS: LACTATED RINGERS 1,000 ML IV SCH ×2 (03:40)
[2022-02-06 06:33] LABS: Basophils % 0.6 % (0.0-0.8); Eosinophils # 0.8 10*3/uL (0.0-0.87); Eosinophils % 16.2 % (0.00-10.9); Hematocrit 27.3 VOL% (42.0-52.0); Hemoglobin 8.4 GM/DL (14.0-18.0); Immature Granulocytes % 0.8 %; Immature Granulocytes Absolute 0.04 #; Lymphocytes % 20.3 % (21.2-54.2); Mean Corpuscular HGB Conc 30.8 GM/DL (32-36); Mean Corpuscular Volume 87.5 FL (87-102); Mean Platelet Volume 10.2 FL (9.6-12.0); Monocytes # 0.6 10*3/uL (0.11-0.8); Monocytes % 13.3 % (1.7-12.7); Neutrophils % 48.8 % (38.7-73.9); Platelet Count 170 T/CUMM (130-400); Red Blood Count 3.12 MC/CUMM (3.8-5.5); Red Cell Distribution Width 18.2 % (9.3-17.3); White Blood Count 4.8 T/CUMM (4-12)
[2022-02-06 06:48] LABS: Calcium 8.7 MG/DL (8.5-10.1); Osmolality,Calculated 273.5 MOS/KG (273-304); Potassium 4.1 MMOL/L (3.5-5.1)
[2022-02-06 07:43] LABS: Eosinophils 20 % (0-10); Lymphocytes 14 % (20-55); Total Cells Counted 100
[2022-02-06 07:44] LABS: Hypochromia 1+; Microcytosis 1+; Platelet Estimate Adequate
[2022-02-06] MEDS: PIPERACILLIN/TAZOBACTAM 3,375 MG in SODIUM CHLORIDE 0.9% 100 ML IV SCH (08:10)
[2022-02-06] MEDS: CLOPIDOGREL 75 MG TABLET PO SCH (08:11)
[2022-02-06] MEDS: DILTIAZEM CD 240 MG CAPSULE PO SCH (08:11)
[2022-02-06] MEDS: LOSARTAN 25 MG TABLET PO SCH (08:11)
[2022-02-06] MEDS: LURASIDONE 40 MG TABLET PO SCH (08:11)
[2022-02-06] MEDS: METOPROLOL SUCCINATE XL 25 MG TABLET PO SCH (08:11)
[2022-02-06] MEDS: FLUoxetine 20 MG CAPSULE PO SCH (08:11)
[2022-02-06] MEDS: PANTOPRAZOLE 40 MG VIAL IV SCH (08:11)
[2022-02-06] MEDS: HYDROmorphone 1 MG/1 ML SYRINGE IV PRN (08:12)
[2022-02-06 12:03] VITALS: BP 151/69
== END 2022-02-06 12:47 | disposition home or self-care (01) ==
LOC: N.ED 10:47 → N.EDINP 10:47 → SUATTDRO 13:46 → N.3E 14:45
PROVIDERS: ADMIT Internal Medicine; ATTEND Internal Medicine